=== PATIENT | female | born 1990 | race Caucasian/White ===

== ENCOUNTER 2016-10-29 14:41 | Observation (INO) | payer OTHER ==
[~2016-10-29] VITALS: Ht 154.9 cm; Wt 78.3 kg
[2016-10-29 15:09] VITALS: BP 133/86; RESP 22
--- NOTE | 2016-10-29 15:26 | ED.REPORT ---
HPI-Extremity Problem Upper Date of Service Oct 29, 2016 ED Provider: The patient is a 26 year old otherwise healthy female who presents to the emergency department complaining of left hand swelling and pain that has worsened over the last few days. The patient states she woke up in the middle of the night a few days ago and noticed her left little finger was itchy. Since this she has noticed swelling and redness to her left little finger, left hand and left arm. Her symptoms have drastically worsened in the last day. Her left little finger is now "white" in color and is draining purulent material. She has not had similar symptoms in the past. She denies fever. She has history of heroin abuse and last used 2-3 months ago. She smokes tobacco daily. Nursing Notes Stated Complaint: SPIDER BITE ON FINGER Chief Complaint: Extremity Trauma Nursing Notes Reviewed: Yes Allergies: Coded Allergies: Penicillins (Verified Allergy, Severe, hives, 02/04/14) General Time Seen by MD: 15:25 Chief Complaint Hand Injury left Hx Obtained From: Patient Arrived By: Walk-in Onset Occurred: 3 days ago Symptom Duration: Since onset Location: : Hand left Quality: Painful Severity: Current: Moderate Severity: Maximum: Severe Associated with: Reports: Swelling, Denies: Fever Additional Notes: +discoloration, purulent drainage Pertinent Negative: Pt denies other symptoms Recent Healthcare: No recent hospitalization Similar Sx Previous: No Past Medical History Past Medical History Denies Past Surgical History Tonsillectomy Family History Noncontributory Smoking History Current Every Day Smoker Social History Alcohol Use: Denies alcohol use Drug Use: In recovery (from heroin) Other Social History: Local resident Ambulatory Status Independent Review of Systems Review of Systems Note: +purulent drainage Constitutional: Denies: Fever Musculoskeletal: Reports: Extremity pain, Extremity swelling Skin: Reports Rash, Reports Swelling Complete sys rev & neg: except as marked. Physical Exam Initial Vital Signs Vital Signs (First) Date Time Temp Pulse Resp B/P Pulse Ox O2 Delivery O2 Flow Rate FiO2 10/29/16 15:09 37.4 22 133/86 Room Air Initial VS: Reviewed Head / Eyes: Atraumatic, Normocephalic, PERRL ENT: Mucous membranes moist, Conjunctiva normal, No scleral icterus Neck: Supple, Non-tender, Full range of motion Respiratory: Breath sounds normal, Clear to auscultation, No respiratory distress Cardiovascular: Regular rate & rhythm, Heart sounds normal, Intact distal pulses Abdomen / GI: Soft, Non-tender, No guarding, No rebound, No distention Lower Extremities: Vascular intact, Neuro intact, No swelling, No tenderness Skin: Warm, Dry, No cyanosis Neurologic: Alert, Oriented, Nonfocal Psychiatric: Mood/affect normal, Behavior normal, Normal thought content General/Constitutional: Awake, Alert HAND: Her left little finger is dusky and purple. There is purulent drainage from the lateral aspect of her left little finger. There is obvious swelling, erythema, and warmth to her left hand. The redness streaks up to the elbow. Interpretation & Diagnostics Lab Results Interpretation Result Diagram: 10/29/16 1555 10/29/16 1555 Test 10/29/16 15:55 White Blood Count 12.7th/mm3 (3.8-10.1) Red Blood Count 4.89mil/mm3 (3.90-5.20) Hemoglobin 14.4g/dL (12.0-15.6) Hematocrit 40.2% (35.0-46.0) Mean Corpuscular Volume 82.2fL (81-100) Mean Corpuscular Hemoglobin 29.4pg (27.0-35.0) Mean Corpuscular Hemoglobin Concent 35.8% (32.0-37.0) Red Cell Distribution Width 12.3% (12.3-15.4) Platelet Count 325bil/L (150-400) Neutrophils (%) (Auto) 72.7% (40-74) Lymphocytes (%) (Auto) 19.2% (14-46) Monocytes (%) (Auto) 7.4% (4-12) Eosinophils (%) (Auto) 0.3% (0-5) Basophils (%) (Auto) 0.2% (0-3) Erythrocyte Sedimentation Rate 42mm/hr (0-32) Sodium Level 130mEq/L (134-144) Potassium Level 4.6mEq/L (3.5-5.2) Chloride Level 90mEq/L (97-108) Carbon Dioxide Level 25mmol/L (18-29) Blood Urea Nitrogen 10mg/dL (6-20) Creatinine 0.36mg/dL (0.57-1.00) Estimat Glomerular Filtration Rate 310mL/min (>59) Glucose Level 99mg/dL (60-99) Lactic Acid Level 0.9mmol/L (0.4-2.0) Calcium Level 9.3mg/dL (8.5-10.1) Magnesium Level 1.9mg/dL (1.6-2.6) Total Bilirubin 1.6mg/dL (0.0-1.2) Aspartate Amino Transf (AST/SGOT) 23U/L (0-50) Alanine Aminotransferase (ALT/SGPT) 30U/L (0-32) Alkaline Phosphatase 94U/L (25-150) C-Reactive Protein 21.9mg/dL (0.0-0.5) Total Protein 8.8g/dL (6.4-8.4) Albumin 3.9g/dL (3.4-5.0) X-Ray Chest Interpretation Chest Xray Interpretation: IMPRESSION: Normal for age, no acute disease over the chest is found. Dictated by: Gurjit Monge M.D. on 10/29/2016 at 16:54 Interpretation / Wet Read by: Interpret - Radiologist X-Ray Interpretation Xray Interpretation: IMPRESSION: Gas within the soft tissues is not seen. Prominent soft tissue swelling is noted. This is involving the entire hand but also most prominent at the fifth digit, especially over the middle and proximal aspect of that digit. Dictated by: Gurjit Monge M.D. on 10/29/2016 at 16:54 X-Ray Ordered: Hand right Interpretation / Wet Read by: Interpret - ED physician Re-Eval/Medical Decision Med Decision/Clinical Course Hand infection will have to go to the operating room. Broad-spectrum antibiotics initiated. Patient will be admitted. Source of Hx: Old records Re-Evaluation/Progress : Time of Eval: 16:30 Re-Evaluation/Progress Note: The patient understands with plan for admission. Consultation #1: Referral / Consult Name: Fran Esposito MD Consulted With: Orthopedic Call Returned at: 16:14 Musical Engineer: Will see patient Note: He is in surgery but will evaluate the patient. Consultation #2: Referral / Consult Name: Zi Dominguez MD Call Returned at: 16:26 Note: Spoke with the hand surgeon. He recommends consulting with ortho. If they are unable to see the patient he would like us to call him back. Consultation #3: Referral / Consult Name: Fran Esposito MD Consulted With: Orthopedic Call Returned at: 17:00 Musical Engineer: Will see patient, Agrees with eval, Agrees with plan, Accepts admit Consultation #4: Referral / Consult Name: Chris Ma MD Consulted With: Video Clerk Call Returned at: 17:18 Musical Engineer: Will see patient, Agrees with eval, Agrees with plan, Accepts admit Counseled Regarding: Diagnosis, Lab results, Need for admission Discharge & Departure Impression: Primary Impression: Infected hand Disposition: ADMITTED TO HOSPITAL Discharge Condition All VS Reviewed: Yes Condition: Stable Referrals: NOPCP (PCP) Scribe Attestation Portions of this note were transcribed by Hawa Guerrero. I, Dr. Diaz personally performed the history, physical exam and medical decision-making; I reviewed and confirmed the accuracy of the information in the transcribed note. Signed by: Ramsey Caputo, 10/29/2016 and 1730. Dionisio Diaz DO Oct 29, 2016 15:26 Hawa Guerrero Oct 29, 2016 15:28
[2016-10-29] MEDS ORDERED: Ondansetron 2 mg/mL 2 mL Inj IVPUSH PRN ×2 (16:05→17:20)
[2016-10-29] MEDS ORDERED: Clindamycin Inj 900 MG in IV Premix 1 EACH IV ONE (16:05)
[2016-10-29] MEDS ORDERED: Vancomycin Dose per Pharmacist XX ONE (16:05)
[2016-10-29] MEDS ORDERED: 0.9% Sodium Chloride 1,000 ML IV ONE (16:05)
[2016-10-29] MEDS ORDERED: 0.9% Sodium Chloride 1,000 ML IV SCH ×4 (16:05→20:16)
[2016-10-29] MEDS ORDERED: Meropenem Inj 1,000 MG in 0.9% Sodium Chloride 100 ML IV ONE (16:05)
[2016-10-29] MEDS ORDERED: Meropenem Inj 1,000 MG in IV Premix 1 EACH IV ONE (16:20)
[2016-10-29 16:29] LABS: BASOPHILS % (AUTO) 0.2 % (0-3); EOSINOPHILS % (AUTO) 0.3 % (0-5); MONOCYTES % (AUTO) 7.4 % (4-12); Mean Corpuscular Hemoglobin 29.4 pg (27.0-35.0); Mean Corpuscular Volume 82.2 fL (81-100); NEUTROPHILS % (AUTO) 72.7 % (40-74); Platelet Count 325 bil/L (150-400)
[2016-10-29 16:34] LABS: Magnesium 1.9 mg/dL (1.6-2.6)
--- NOTE | 2016-10-29 16:56 | DRSVH ---
PROCEDURE: X-RAY CHEST ONE VIEW, PORTABLE ([id number]) INDICATIONS: infected 5th digit TECHNIQUE: One view of the chest was acquired. COMPARISON: None. FINDINGS: Surgical changes and devices: None. Lungs and pleura: No pleural effusions or pneumothorax. Lungs are clear. Mediastinum: Mediastinal contours appear normal. Heart size is normal. Bones and chest wall: No suspicious bony lesions. Overlying soft tissues appear unremarkable. IMPRESSION: Normal for age, no acute disease over the chest is found. Dictated by: Gurjit Monge M.D. on 10/29/2016 at 16:54 Approved by: Gurjit Monge M.D. on 10/29/2016 at 16:54
--- NOTE | 2016-10-29 16:56 | DRSVH ---
PROCEDURE: X-RAY LEFT HAND, MINIMUM THREE VIEWS ([id number]) INDICATIONS: infected 5th digit TECHNIQUE: 3 views of the hand(s) acquired. COMPARISON: None. FINDINGS: Bones: No fractures or dislocations. No osteomyelitis or foreign body seen. No gas within the soft tissues. Carpal bones are normally aligned. No suspicious bony lesions. Soft tissues: No suspicious soft tissue calcifications. There is prominent soft tissue swelling of the dorsum of the hand and also across the palmar region and most pronounced over the fifth digit. IMPRESSION: Gas within the soft tissues is not seen. Prominent soft tissue swelling is noted. This is involving the entire hand but also most prominent at the fifth digit, especially over the middle a nd proximal aspect of that digit. Dictated by: Gurjit Monge M.D. on 10/29/2016 at 16:54 Approved by: Gurjit Monge M.D. on 10/29/2016 at 16:54
[2016-10-29 17:12] LABS: ERYTHROCYTE SEDIMENTATION RATE 42 mm/hr (0-32)
[2016-10-29] MEDS ORDERED: Alum-Mag Hydrox-Simeth 30 mL Suspension PO PRN (17:20)
--- NOTE | 2016-10-29 17:49 | PCM.CONORT ---
Subjective Date of Surgery: Oct 29, 2016 Surgeon Admitting Provider: Attending Provider: Primary Care Physician:Renee Orthopedic surgeon: Fran Esposito M.D. 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 She denies IV heroin use for the last 2 months but smoked heroin this morning and has used amphetamines within the last week. The patient presents to [facility] emergency room reporting left small finger pain, swelling, blistering and drainage beginning approximately 2 days prior to admission. The patient denies injecting into her left hand, but does not recall any obvious trauma to the affected area. She believes she may have experienced a "spider bite", but did not actually see any suspicious arachnoids. The patient denies fevers or chills, but has not been feeling well. She has not had anything to eat or drink since early this a.m. The patient reports altered sensation in her small finger tip and is unable to actively flex or extend her markedly swollen digit. There has been secondary swelling of her hand, but no streaking or lymphadenopathy. The patient has been admitted to the hospitalist service with an elevated WBC of 12.7. X-rays are negative for fracture, dislocation, lytic lesions, periosteal reaction or foreign body. Soft tissue swelling is noted about the left small finger. Vital signs revealed no hemodynamic instability. The patient has been started on vancomycin, clindamycin and meropenem for presumed infection. An orthopedic consultation has been requested for surgical assessment regarding her swollen and macerated left small finger and hand. Allergy Allergies: Coded Allergies: Penicillins (Verified Allergy, Severe, hives, 02/04/14) History History of ENT Problems?: No Hx of Heart Problems?: No Cardiovascular History: Denies:: Congestive Heart Failure Hypertension Hx of Respiratory Problem?: No Respiratory History: Denies:: Tuberculosis Hx Neurologic Problems?: No Hx of GI Problems?: No Hx of Problems?: No Genitourinary History: Denies:: HX of Hemodialysis Kidney Stones HX of Peritoneal Dialysis: No Female Hx: Denies:: Currently Endometriosis Pelvic Inflammatory Problems with Breasts? Hx Musculoskeletal Problems?: No Hx of Psycho/Social Problems?: No Hx Surgeries?: No Hx Any Other Health Problems?: No Other History: Denies:: Cancer Endocrine Disease Hospitalization Thyroid Disease History Blood Transfusions: Denies:: Blood Transfusions Hx Diabetes: No Hx Alcohol Use: NoHx Substance Use: No Smoking Status: Current Every Day Smoker Have You Smoked inLast 12 mo: Yes Objective Exam Objective Imaging Patient Name: LESLY SIMPSON MR#: [id number] [place] [facility] [place]ing Phys: Dionisio Diaz DO Date of Service: 10/29/16 1605 PROCEDURE: X-RAY LEFT HAND, MINIMUM THREE VIEWS ([id number]) INDICATIONS: infected 5th digit TECHNIQUE: 3 views of the hand(s) acquired. COMPARISON: None. FINDINGS: Bones: No fractures or dislocations. No osteomyelitis or foreign body seen. No gas within the soft tissues. Carpal bones are normally aligned. No suspicious bony lesions. Soft tissues: No suspicious soft tissue calcifications. There is prominent soft tissue swelling of the dorsum of the hand and also across the palmar region and most pronounced over the fifth digit. IMPRESSION: Gas within the soft tissues is not seen. Prominent soft tissue swelling is noted. This is involving the entire hand but also most prominent at the fifth digit, especially over the middle and proximal aspect of that digit. Dictated by: Gurjit Monge M.D. on 10/29/2016 at 16:54 Approved by: Gurjit Monge M.D. on 10/29/2016 at 16:54 Vital Signs & I/O Vital Sign- Last 8 Hours Date Time Temp Pulse Resp B/P Pulse Ox O2 Delivery O2 Flow Rate FiO2 10/29/16 15:09 37.4 22 133/86 Room Air Lab & Micro Results Laboratory Tests Test 10/29/16 15:55 White Blood Count 12.7th/mm3 (3.8-10.1) Red Blood Count 4.89mil/mm3 (3.90-5.20) Hemoglobin 14.4g/dL (12.0-15.6) Hematocrit 40.2% (35.0-46.0) Mean Corpuscular Volume 82.2fL (81-100) Mean Corpuscular Hemoglobin 29.4pg (27.0-35.0) Mean Corpuscular Hemoglobin Concent 35.8% (32.0-37.0) Red Cell Distribution Width 12.3% (12.3-15.4) Platelet Count 325bil/L (150-400) Neutrophils (%) (Auto) 72.7% (40-74) Lymphocytes (%) (Auto) 19.2% (14-46) Monocytes (%) (Auto) 7.4% (4-12) Eosinophils (%) (Auto) 0.3% (0-5) Basophils (%) (Auto) 0.2% (0-3) Erythrocyte Sedimentation Rate 42mm/hr (0-32) Sodium Level 130mEq/L (134-144) Potassium Level 4.6mEq/L (3.5-5.2) Chloride Level 90mEq/L (97-108) Carbon Dioxide Level 25mmol/L (18-29) Blood Urea Nitrogen 10mg/dL (6-20) Creatinine 0.36mg/dL (0.57-1.00) Estimat Glomerular Filtration Rate 310mL/min (>59) Glucose Level 99mg/dL (60-99) Lactic Acid Level 0.9mmol/L (0.4-2.0) Calcium Level 9.3mg/dL (8.5-10.1) Magnesium Level 1.9mg/dL (1.6-2.6) Total Bilirubin 1.6mg/dL (0.0-1.2) Aspartate Amino Transf (AST/SGOT) 23U/L (0-50) Alanine Aminotransferase (ALT/SGPT) 30U/L (0-32) Alkaline Phosphatase 94U/L (25-150) C-Reactive Protein 21.9mg/dL (0.0-0.5) Total Protein 8.8g/dL (6.4-8.4) Albumin 3.9g/dL (3.4-5.0) Microbiology 10/29/16 Blood Culture, Received Pending Result Diagram: 10/29/16 1555 10/29/16 8902 Review of Systems: Constitutional: Negative, except as otherwise mentioned in the history above. Ophthalmologic: Negative, except as otherwise mentioned in the history above. Cardiovascular: Negative, except as otherwise mentioned in the history above. Respiratory: Negative, except as otherwise mentioned in the history above. Gastrointestinal: Negative, except as otherwise mentioned in the history above. Genitourinary: Negative, except as otherwise mentioned in the history above. Musculoskeletal: Negative, except as otherwise mentioned in the history above. Neurological: Negative, except as otherwise mentioned in the history above. Psychiatric: Negative, except as otherwise mentioned in the history above. Hematologic/Lymphatic: Negative, except as otherwise mentioned in the history above. Allergic/Immunologic: Negative, except as otherwise mentioned in the history above. H&P Surgical Exam Exam General: Alert, Oriented X3, Cooperative, Severe Distress Musculoskeletal: Left hand and upper extremity: Marked fusiform swelling of the small finger and distal ulnar hand centered over the proximal small finger phalanx laterally. There is blistering dorsally over the PIP joint and maceration of the ulnar lateral border of the small finger. The skin is dusky and ecchymotic from fingertip to base of digit dorsally and ulnar. The patient cannot demonstrate active flexion or extension of the digit which is maintained in slight flexion. There is moderate swelling of the ulnar hand and mild to moderate erythema and swelling of the ring and middle fingers. The majority of discomfort is elicited with palpation about the small finger. The digit feels tense. No obvious, single draining wound is noted. Serosanguineous drainage from the blistered and split skin is sent for Gram stain, culture and sensitivity. There is no obvious streaking of the forearm or axillary lymphadenopathy. Neurovascular exam: Median and radial sensation grossly intact to light touch. Ulnar sensation is diminished. Flexor pollicis longus, interossei, extensor pollicis longus 3/5 motor power. Capillary refill of the small fingertip is sluggish. Radial pulse is palpable. H&P Preop Plan Impression Left small finger infection with presumed abscess in patient with history of illicit substance use and previous hand infections. Problems: Risks & Benefits * We have reviewed the risks and benefits as well as the alternatives to surgery. All questions were answered to the patient's satisfaction and a counseling note to that effect. The patient has provided informed consent. * I have counseled the patient regarding the deleterious effects that smoking during the perioperative period can have upon wound healing, infection rates, and the overall rate of complications. Plan I have reviewed the serious nature of the problem with the patient and have recommended that we go to the OR as soon as possible for a left finger and hand incision and drainage procedure. We reviewed the potential risks and benefits of surgery including, but not limited to, discussions involving infection, bleeding, neurovascular injury, stiffness, weakness, hypersensitivity and reflex sympathetic dystrophy, incomplete eradication of infection requiring repeat procedures including amputation and recurrence. We also discussed general medical complications including, but not limited to, stroke, myocardial infarction, cardiorespiratory arrest, generalized infection or sepsis, deep vein thrombosis and pulmonary embolism and exacerbation of pre-existing medical comorbidities. Postoperatively, patient will require inpatient admission for continued IV antibiotic therapy and initiation of wound care from the wound care team. copies to: Fran Esposito MD, Michael G.E MD Oct 29, 2016 17:49
--- NOTE | 2016-10-29 18:04 | PCM.HPMED ---
Subjective Date of Service Oct 29, 2016 Primary Provider: Admitting Physician: Primary Care Physician: Renee Attending Physician: Chief Complaint: Left fifth digit pain and drainage HISTORY was OBTAINED FROM PATIENT / [address] NOTES History of present illness 26-year-old female, left AMA 2013 with right hand cellulitis admission associated with SIRS, presents today in the ER with right fifth digit drainage after 1 day sudden erythema/pain onset. She indicates possible spider bite, heroin and amphetamine use recently. Smoker. no sick contacts. no other household members w/ rash. no DM In the ER, hemodynamically stable. Dr. Fran Esposito from orthopedics will take her for I&D Review of Systems - none of the following - F/C/ wt change/ [place] / lightheaded / dizziness / sob / cough / cp / acid reflux / n/v/diarrhea / bleeding/bruising / leg swelling / change in voiding / yeast infections FAMILY HX diabetes CAD SOCIAL HX smoker, illicit drug use MEDICATIONS none Past Medical/Surgical HX Right hand cellulitis Dental infection Allergies Coded Allergies: Penicillins (Verified Allergy, Severe, hives, 02/04/14) PMH Social History Hx Alcohol Use: No Hx Substance Use: No Smoking Status: Current Every Day Smoker Exam Vital Signs Vital Sign - Last Date Time Temp Pulse Resp B/P Pulse Ox O2 Delivery O2 Flow Rate FiO2 10/29/16 15:09 37.4 22 133/86 Room Air Lab and Diagnostics Labs Exam on admission NAD A and O x 3 mood affect WNL NC/AT no icterus no injected eyes EOMI PERRL /no pharyngeal lesions/ no oral lesions / hearing intact Supple neck CTAB equal chest rise / no accessory muscle use / speaks in full sentences / no rrw RRR mildly tachy S1 S2 / no mrg / 2+ radial pulses BILATERAL Soft nt nd + BS no hepatosplenomegaly No edema no cyanosis no ecchymosis of lower extremities No rash / no jaundice BELLO Left hand wrapped bilateral hands mild edema LFT total bilirubin 1.6, direct 0.3 ESR/CRP are elevated CXR unremarkable Hand xray IMPRESSION: Gas within the soft tissues is not seen. Prominent soft tissue swelling is noted. This is involving the entire hand but also most prominent at the fifth digit, especially over the middle and proximal aspect of that digit. Result Diagram: 10/29/16 3246 10/29/16 5217 Assessment & Plan Active issues and reason for admission Right fifth finger abscess -- Pending I&D, pending blood cultures and wound culture -- Meropenem and vancomycin clindamycin in ER, continue vancomycin and meropenem , allergic to PCN -- Blood glucose is not elevated hypoNa, likely due to dehydration, c/o thirst --IVF Chronic issues known prior to admission, present on admission Heroin/amphetamine --Anticipate withdrawal (rhinorrhea/diarrhea/diffuse pain), clonidine Ativan Bentyl morphine benadryl Diet regular post op DVT prophylaxis Lovenox ambulate Code full Disposition inpatient status Assessment and plan were discussed with patient adn boyfriend. Chris Ma MD Oct 29, 2016 18:04
--- NOTE | 2016-10-29 19:16 | PCM.HPANE ---
Patient Data Surgeon Admitting Provider: Attending Provider: Primary Care Physician:Renee Other Provider: Reason for Visit Spider Bite On Finger Ht/WT & BMI Height (Feet): 5 Height (Inches): 1 Weight (Kilograms): 72.73 Body Mass Index Allergies Coded Allergies: Penicillins (Verified Allergy, Severe, hives, 02/04/14) Past Anesthesia History Anesthesia History: Denies:: Anesthesia Reactions Diabetes History Hx Diabetes?: No MRSA MRSA: No History History of ENT Problems?: No Hx of Heart Problems?: No Cardiovascular History: Denies:: Congestive Heart Failure Hypertension Hx of Respiratory Problem?: No Respiratory History: Denies:: Tuberculosis Hx Neurologic Problems?: No Hx of GI Problems?: No Hx of Problems?: No Genitourinary History: Denies:: HX of Hemodialysis Kidney Stones HX of Peritoneal Dialysis: No Female Hx: Denies:: Currently Endometriosis Pelvic Inflammatory Problems with Breasts? Hx Musculoskeletal Problems?: No Hx of Psycho/Social Problems?: No Hx Surgeries?: No Hx Any Other Health Problems?: No Other History: Denies:: Cancer Endocrine Disease Hospitalization Thyroid Disease History Blood Transfusions: Denies:: Blood Transfusions Hx Diabetes: No Hx Alcohol Use: NoHx Substance Use: No Smoking Status: Current Every Day Smoker Have You Smoked inLast 12 mo: Yes Stop/Bang DESHAWN Risk Assessment: Low Risk, <3 Yes Risk Assessment Category Category 1A: Patient has history of documented sleep apnea, and HAS NOT received any narcotic, sedative or anesthesia administration during this stay. Category 1B: Patient has history of documented sleep apnea, and HAS received any narcotic , sedative or anesthesia administration during this stay Category 2: Patient has SUSPECTED Obstructive Sleep Apnea, and HAS received any narcotic , sedative or anesthesia administration during this stay. Category 3: Patient has SUSPECTED Obstructive Sleep Apnea and HAS NOT received narcotic, sedative or anesthesia administration during this stay. Category 4: Outpatient in Procedural Areas with known sleep apnea or who screen positive for High Risk via the STOP/BANG questionnaire. Exam Exam Vital Signs Vital Signs Date Time Temp Pulse Resp B/P Pulse Ox O2 Delivery O2 Flow Rate FiO2 10/29/16 15:09 37.4 22 133/86 Room Air General Appearance: Alert, Oriented X3, Cooperative, No Acute Distress HEENT/AIRWAY: MP 2 Lungs: Clear to Auscultation, Normal Air Movement Heart: Exam Unremarkable, Regular Rate/Rhythm, No Murmurs/Rubs/Gallops Meds/Labs/Diagnostics Admission Meds Current Medications Pharmacy Consult 1 ea 1 ea ONCE ONCE XX Last administered on 10/29/16 17:50; Start 10/29/16 at 16:05; Stop 10/29/16 at 16:32; Status DC Sodium Chloride 1,000 ml @ 0 mls/hr Q0M IV Last administered on 10/29/16 17: 18; Start 10/29/16 at 16:05 Vancomycin HCl/ Dextrose/Water (Vancocin Inj/ D5W) 250 ml @ 166.667 mls/hr ONCE ONCE IV Last administered on 10/29/16 17:50; Start 10/29/16 at 16:35; Stop 10/29/16 at 18:04; Status DC Labs Test 10/29/16 15:55 White Blood Count 12.7th/mm3 (3.8-10.1) Red Blood Count 4.89mil/mm3 (3.90-5.20) Hemoglobin 14.4g/dL (12.0-15.6) Hematocrit 40.2% (35.0-46.0) Mean Corpuscular Volume 82.2fL (81-100) Mean Corpuscular Hemoglobin 29.4pg (27.0-35.0) Mean Corpuscular Hemoglobin Concent 35.8% (32.0-37.0) Red Cell Distribution Width 12.3% (12.3-15.4) Platelet Count 325bil/L (150-400) Neutrophils (%) (Auto) 72.7% (40-74) Lymphocytes (%) (Auto) 19.2% (14-46) Monocytes (%) (Auto) 7.4% (4-12) Eosinophils (%) (Auto) 0.3% (0-5) Basophils (%) (Auto) 0.2% (0-3) Erythrocyte Sedimentation Rate 42mm/hr (0-32) Sodium Level 130mEq/L (134-144) Potassium Level 4.6mEq/L (3.5-5.2) Chloride Level 90mEq/L (97-108) Carbon Dioxide Level 25mmol/L (18-29) Blood Urea Nitrogen 10mg/dL (6-20) Creatinine 0.36mg/dL (0.57-1.00) Estimat Glomerular Filtration Rate 310mL/min (>59) Glucose Level 99mg/dL (60-99) Lactic Acid Level 0.9mmol/L (0.4-2.0) Calcium Level 9.3mg/dL (8.5-10.1) Magnesium Level 1.9mg/dL (1.6-2.6) Total Bilirubin 1.6mg/dL (0.0-1.2) Direct Bilirubin 0.3mg/dL (0.0-0.3) Aspartate Amino Transf (AST/SGOT) 23U/L (0-50) Alanine Aminotransferase (ALT/SGPT) 30U/L (0-32) Alkaline Phosphatase 94U/L (25-150) C-Reactive Protein 21.9mg/dL (0.0-0.5) Total Protein 8.8g/dL (6.4-8.4) Albumin 3.9g/dL (3.4-5.0) Plan Impression Patient chart reviewed, patient interviewed and anesthestic plan with risks, benefits, and alternatives discussed, and informed consent obtained. ASA Physical Status: ASA2 Mod Systemic Disease Anesthetic Plan: GA Bene/Risks/Altern/Consents: Yes HP Complete Prior to Induction: Yes Other drug use recently, what is not certain nor is when Jabari Bronson MD Oct 29, 2016 19:16
[2016-10-29] MEDS ORDERED: Ondansetron 2 mg/mL 2 mL Inj ONE (19:20)
[2016-10-29] MEDS ORDERED: Dexamethasone 4 mg/mL Inj ONE (19:20)
[2016-10-29] MEDS ORDERED: Propofol 10,000 mCg/mL 20 mL Inj ONE (19:20)
[2016-10-29 19:35] VITALS: BP 116/66; PULSE 113; RESP 16; O2SAT 99
[2016-10-29] MEDS ORDERED: cloNIDine 0.1 mg Tablet PO PRN (20:20)
--- NOTE | 2016-10-29 21:51 | PCM.CONPHA ---
Subjective Date of Service: Oct 29, 2016 Left fifth digit pain and drainage HISTORY was OBTAINED FROM PATIENT / [employer] NOTES History of present illness 26-year-old female, left AMA 2013 with right hand cellulitis admission associated with SIRS, presents today in the ER with right fifth digit drainage after 1 day sudden erythema/pain onset. She indicates possible spider bite, heroin and amphetamine use recently. Smoker. no sick contacts. no other household members w/ rash. no DM In the ER, hemodynamically stable. Dr. Fran Esposito from orthopedics will take her for I&D Review of Systems - none of the following - F/C/ wt change/ [place] / lightheaded / dizziness / sob / cough / cp / acid reflux / n/v/diarrhea / bleeding/bruising / leg swelling / change in voiding / yeast infections FAMILY HX diabetes CAD SOCIAL HX smoker, illicit drug use MEDICATIONS none Past Medical/Surgical HX Right hand cellulitis Dental infection Reason for Pharmacy Consult: Vancomycin Dosing Objective Vital Signs Date Time Temp Pulse Resp B/P Pulse Ox O2 Delivery O2 Flow Rate FiO2 10/29/16 19:35 36.9 113 16 116/66 99 Room Air 10/29/16 15:09 37.4 22 133/86 Room Air Weight (Kilograms): 78.300 Height (Feet): 5 Height (Inches): 1.00 Test 10/29/16 15:55 White Blood Count 12.7th/mm3 (3.8-10.1) Red Blood Count 4.89mil/mm3 (3.90-5.20) Hemoglobin 14.4g/dL (12.0-15.6) Hematocrit 40.2% (35.0-46.0) Mean Corpuscular Volume 82.2fL (81-100) Mean Corpuscular Hemoglobin 29.4pg (27.0-35.0) Mean Corpuscular Hemoglobin Concent 35.8% (32.0-37.0) Red Cell Distribution Width 12.3% (12.3-15.4) Platelet Count 325bil/L (150-400) Neutrophils (%) (Auto) 72.7% (40-74) Lymphocytes (%) (Auto) 19.2% (14-46) Monocytes (%) (Auto) 7.4% (4-12) Eosinophils (%) (Auto) 0.3% (0-5) Basophils (%) (Auto) 0.2% (0-3) Erythrocyte Sedimentation Rate 42mm/hr (0-32) Sodium Level 130mEq/L (134-144) Potassium Level 4.6mEq/L (3.5-5.2) Chloride Level 90mEq/L (97-108) Carbon Dioxide Level 25mmol/L (18-29) Blood Urea Nitrogen 10mg/dL (6-20) Creatinine 0.36mg/dL (0.57-1.00) Estimat Glomerular Filtration Rate 310mL/min (>59) Glucose Level 99mg/dL (60-99) Lactic Acid Level 0.9mmol/L (0.4-2.0) Calcium Level 9.3mg/dL (8.5-10.1) Magnesium Level 1.9mg/dL (1.6-2.6) Total Bilirubin 1.6mg/dL (0.0-1.2) Direct Bilirubin 0.3mg/dL (0.0-0.3) Aspartate Amino Transf (AST/SGOT) 23U/L (0-50) Alanine Aminotransferase (ALT/SGPT) 30U/L (0-32) Alkaline Phosphatase 94U/L (25-150) C-Reactive Protein 21.9mg/dL (0.0-0.5) Total Protein 8.8g/dL (6.4-8.4) Albumin 3.9g/dL (3.4-5.0) Assessment/Plan Assessment/Plan POSSIBLE SPIDER BITE? HX OF illicit drug use lLD 1250MG, FOLLOW BY 1GM Q8H TROUGH to be drawn tomorrow before the 4th dose, @ 17[address] [facility] TROUGH LEVEL 15 - 20 Vernon Hanley PharmD Oct 29, 2016 21:51
[2016-10-30] VITALS (12 sets, daily range): BP systolic 102–148; BP diastolic 62–79; PULSE 64–103; RESP 15–20; O2SAT 94–100
[2016-10-30 00:09] LABS: APPEARANCE,URINE CLEAR (CLEAR,HAZY); COLOR,URINE DARK YELLOW (YELLOW); OCCULT BLOOD,URINE NEGATIVE (NEGATIVE)
[2016-10-30] MEDS ORDERED: Lactated Ringer's 500 ML IV PRN (00:17)
[2016-10-30] MEDS ORDERED: Lactated Ringer's 1,000 ML IV SCH (00:17)
[2016-10-30] MEDS ORDERED: Ondansetron 2 mg/mL 2 mL Inj IVPUSH PRN ×2 (00:20→01:10)
[2016-10-30] MEDS ORDERED: hydrALAZINE 20 mg/mL Inj IVPUSH PRN (00:20)
[2016-10-30] MEDS ORDERED: Dexamethasone 4 mg/mL Inj IVPUSH PRN (00:20)
[2016-10-30] MEDS ORDERED: fentaNYL-PF 50 mCg/mL 2 mL Inj IVPUSH PRN (00:20)
[2016-10-30] MEDS ORDERED: Phenylephrine 10,000 mCg/mL Inj IVPUSH PRN (00:20)
[2016-10-30] MEDS ORDERED: Atropine 0.4 mg/mL Inj IVPUSH PRN (00:20)
[2016-10-30] MEDS ORDERED: EPHEDrine Sulfate 50 mg/mL Inj IVPUSH PRN (00:20)
[2016-10-30] MEDS ORDERED: HYDROmorphone 1 mg/mL Inj IVPUSH PRN ×2 (00:20→01:10)
[2016-10-30] MEDS ORDERED: Labetalol 5 mg/mL 4 mL Inj IV PRN (00:20)
[2016-10-30] MEDS ORDERED: MetoCLOpramide 5 mg/mL 2 mL Inj IVPUSH PRN (00:20)
[2016-10-30] MEDS ORDERED: Meropenem Inj 1,000 MG in IV Premix 1 EACH IV SCH (00:30)
[2016-10-30] MEDS ORDERED: Bupivacaine-MPF 0.5% 30 mL Inj INFILTRATE ONE (00:39)
[2016-10-30] MEDS ORDERED: Magnesium Hydroxide 10 mL Oral Concentration PO PRN (01:10)
[2016-10-30] MEDS ORDERED: Polyethylene Glycol (PEG) 17 Gm Powder PO PRN (01:10)
[2016-10-30] MEDS ORDERED: diphenhydrAMINE 25 mg Capsule PO PRN (01:10)
[2016-10-30] MEDS ORDERED: Sodium Biphos-Phos 133 mL Enema RECTAL PRN (01:10)
--- NOTE | 2016-10-30 01:16 | PCM.ANEP1 ---
Post Anesthesia Phase 1 PACU Phase 1 Assessment Date of Service: Oct 29, 2016 Vital Signs Vital Signs Date Time Temp Pulse Resp B/P Pulse Ox O2 Delivery O2 Flow Rate FiO2 10/30/16 01:10 95 18 135/74 99 Simple Mask 10 10/30/16 01:07 37.5 95 15 125/74 99 Simple Mask 10 10/30/16 00:13 37.3 103 16 117/69 99 Room Air 10/29/16 19:35 36.9 113 16 116/66 99 Room Air Anesthetic Administered: GA Level of Alertness: Awake, talking BELLO's with Equal Strength: Yes Pain: No Pain Scale Score: 8 Nausea or Vomiting: No Oxygen Delivery: Simple Mask Lungs: Clear to Auscultation, Normal Air Movement Jabari Bronson MD Oct 30, 2016 01:16
--- NOTE | 2016-10-30 01:20 | PCM.ANEP2 ---
Post Anesthesia Evaluation ASA/CMS Post Anesthesia VS in Patient's Normal Range?: Yes Resp Stable; Airway Patent?: Yes CV Function & Hydration Stable: Yes Mental Status Recovered?: Yes Pain control Satisfactory?: Yes N/V Control Satisfactory?: Yes Jabari Bronson MD Oct 30, 2016 01:20
--- NOTE | 2016-10-30 01:34 | PCM.ORTHOB ---
Immediate Operative Note Date of Service: Oct 30, 2016 Pre Operative Diagnosis Left small finger abscess Post Operative Diagnosis Same Procedure Left small finger abscess incision and drainage Surgeon Surgeon: Fran Esposito MD Assistants: None Findings The small finger had a scalded appearance with blistered skin along the ulnar border, volar and dorsal surfaces of the small finger. Dermal tissue appeared yellowish volar and ulnar to the base of the small finger extending into the distal hand. 2 mm ovoid wound noted along the mid ulnar border of the distal and proximal to the small finger MCP flexor crease. Creamy, arguello, malodorous and purulent material aspirated from this wound extending deep to a subcutaneous abscess which was sent to microbiology for Gram stain, culture and sensitivities. Left small finger subcutaneous abscess 6 cm x 6 cm extending from the small finger PIP joint level proximally to the mid ulnar border of the hand, radially to the first webspace volar and dorsal to the mid fifth ray. The subcutaneous abscess contained devitalized subcutaneous tissues. The flexor and extensor tendon sheaths appeared intact. There was no apparent violation of the PIP joint or MCP joint of the small finger. Devitalized material removed from the described abscess cavity through a 2 cm longitudinal wound extended proximally from the possible original wound site. Overlying de- epithelialized tissue appeared to have reddened and yellowish tissue which still appeared viable. Small finger appeared dusky distally with slow, but present capillary refill at the end of case. Grafts, Implants: None Complications There were no periprocedural complications identified. Condition Stable Anesthetic Administered: GA Drains: Pen Starla (1/4" iodoform gauze packing) Catheters: None Output, Estimated Blood Loss: 10 Blood Admin during surgery: No Additional Information Tourniquet time 37 minutes. Surgical Specimen Removed: Yes Surgical Specimen sent to Path: No Surgical Specimen description: Abscess material sent to microbiology for Gram stain, culture and sensitivity Post Operative Plan The patient will be admitted for continuation of IV antibiotic therapy ( vancomycin and clindamycin) pending intraoperative culture results. The surgical wound has been left open to allow for healing by secondary intent. Wound care consultation has been requested for initiation of wound care beginning postop day #1. The patient's wound will be closely observed for evidence of clinical improvement and daily CBC for monitoring WBC response to therapy. Possible second look procedure may be warranted if clinical course does not show improvement. Long, protracted postoperative course is to be expected and secondary procedures for soft tissue coverage and/or additional debridements may be required. Fran Esposito MD Oct 30, 2016 01:34
--- NOTE | 2016-10-30 01:45 | NUR ---
Transfer Pt transferred from PACU byLori BRO via stretcher.
--- NOTE | 2016-10-30 01:48 | PCM.ORTHOP ---
Orthopedic Operative Report Date of Service: Oct 30, 2016 Pre Operative Diagnosis Left small finger abscess Post Operative Diagnosis Same Procedure Left small finger abscess incision and drainage Surgeon Surgeon: Fran Esposito MD Assistants: None Indication for Procedure The patient is a 26-year-old right-hand dominant woman with a history of IV drug use reports a 2 day history of progressive left small finger pain, swelling and drainage from small finger blisters. Possible history of spider bite by patient. Patient admitted to [facility] with WBC of 12.7 and obvious left small finger swelling, erythema and skin blistering consistent with underlying digital abscess. Patient presents for urgent I&D of her left small finger. Findings The small finger had a scalded appearance with blistered skin along the ulnar border, volar and dorsal surfaces of the small finger. Dermal tissue appeared yellowish volar and ulnar to the base of the small finger extending into the distal hand. 2 mm ovoid wound noted along the mid ulnar border of the distal and proximal to the small finger MCP flexor crease. Creamy, arguello, malodorous and purulent material aspirated from this wound extending deep to a subcutaneous abscess which was sent to microbiology for Gram stain, culture and sensitivities. Left small finger subcutaneous abscess 6 cm x 6 cm extending from the small finger PIP joint level proximally to the mid ulnar border of the hand, radially to the first webspace volar and dorsal to the mid fifth ray. The subcutaneous abscess contained devitalized subcutaneous tissues. The flexor and extensor tendon sheaths appeared intact. There was no apparent violation of the PIP joint or MCP joint of the small finger. Devitalized material removed from the described abscess cavity through a 2 cm longitudinal wound extended proximally from the possible original wound site. Overlying de- epithelialized tissue appeared to have reddened and yellowish tissue which still appeared viable. Small finger appeared dusky distally with slow, but present capillary refill at the end of case. Details of Procedure Patient was brought to the OR and given a general anesthetic. Patient's left upper extremity was abducted and placed on the hand table. Tourniquet was placed high about the left arm. Left hand and upper extremity received a trauma scrub and then were prepped and draped in usual sterile fashion. Devitalized, blistered, scalded-appearing epidermis was debrided from the base of the small finger and distal ulnar border of the hand. A 20-gauge needle was then used through a 2 mm puncture type of in the ulnar border of the distal hand just proximal to the small finger MCP flexor crease where creamy, arguello, malodorous material was aspirated. The aspirated material was sent to microbiology for Gram stain, culture and sensitivity. We made a 2 cm longitudinal incision distal to the puncture wound along the ulnar border of the distal hand. We entered a subcutaneous cavity (6 x 6 cm) extending from the mid hand into the distal palm and proximal to the small finger volar, ulnar and dorsally which extended distally into the small finger to the level of the PIP joint volarly, ulnar and dorsally. The flexor and extensor tendons transversing the affected region appeared intact. The PIP joint did not appear violated. We debrided the abscess cavity of purulent and devitalized tissue. The wound was then thoroughly irrigated with normal saline and the wound packed open with quarter-inch iodoform gauze. The wound was dressed with Xeroform fluff gauze dressings. The tourniquet was deflated. The left small fingertip remained dusky but slow capillary refill was noted to return. The patient was taken back to PACU in stable and satisfactory condition. There were no complications. The patient tolerated the procedure well. Grafts, Implants: None Complications There were no periprocedural complications identified. Condition Stable Anesthetic Administered: GA Drains: Pen Starla (1/4" iodoform gauze packing) Catheters: None Output, Estimated Blood Loss: 10 Blood Admin during surgery: No Addtional Information Tourniquet time 37 minutes. Surgical Specimen Removed: Yes Specimen sent to Pathology: No Surgical Specimen description: Abscess material sent to microbiology for Gram stain, culture and sensitivity Post Operative Plan The patient will be admitted for continuation of IV antibiotic therapy ( vancomycin and clindamycin) pending intraoperative culture results. The surgical wound has been left open to allow for healing by secondary intent. Wound care consultation has been requested for initiation of wound care beginning postop day #1. The patient's wound will be closely observed for evidence of clinical improvement and daily CBC for monitoring WBC response to therapy. Possible second look procedure may be warranted if clinical course does not show improvement. Long, protracted postoperative course is to be expected and secondary procedures for soft tissue coverage and/or additional debridements may be required. copies to: Fran Esposito MD, Michael G.E MD Oct 30, 2016:48
--- NOTE | 2016-10-30 01:52 | NUR ---
Admit to Room 1003 Patient arrived from ED at 1940 via gurney accompanied by ED RN and significant other. VSS. Patient appeared teary and anxious about upcoming surgery on finger and about being "judged" by hospital personnel . Patient was reassured . Pain medication and lorazepam administered by charge nurse. IV fluids started. Behavioral contract signed by patient as she was caught in the bathroom smoking. Patient was informed of hospital policy.
[2016-10-30] MEDS: Lactated Ringer's 1,000 ML IV SCH ×2 (02:05→11:06)
[2016-10-30] MEDS: Vancomycin Inj 1,000 MG in IV Premix 1 EACH IV SCH ×2 (02:06→10:11)
[2016-10-30 07:28] LABS: Mean Corpuscular Hemoglobin 28.9 pg (27.0-35.0); Mean Corpuscular Volume 82.3 fL (81-100)
[2016-10-30] MEDS: Clindamycin Inj 600 MG in IV Premix 1 EACH IV SCH ×2 (08:30→16:30)
[2016-10-30] MEDS ORDERED: Senna-Docusate 8.6-50 mg Tablet PO SCH (08:30)
[2016-10-30] MEDS ORDERED: Vancomycin Dose per Pharmacist XX ONE (08:30)
[2016-10-30] MEDS: Sodium Chloride LOK Flush 10 mL Syringe IV SCH ×2 (08:42→16:30)
--- NOTE | 2016-10-30 08:58 | NUR ---
Social Work: Screening Data: Pt is a 26 y/o female admitted for hand infections. Pt's PCP is not listed, pt is self pay insurance. [employer] left a [facility] application with pt. No further d/c planning needs anticipated at this time. BEAD PICKER will continue to follow if needs arise. Assessment: Pt who is independent at baseline. Plan: Pt will d/c home via POV when medically stable. No further d/c planning needs anticipated at this time. [employer] will continue to follow if needs arise. RAMA Jernigan
--- NOTE | 2016-10-30 14:09 | PCM.PNMED ---
Subjective Date of Service Oct 30, 2016 Subjective reports ongoing hand pain. denies any other new issues/complaints Exam Vital Signs Vital Sign - Last Date Time Temp Pulse Resp B/P Pulse Ox O2 Delivery O2 Flow Rate FiO2 10/30/16 13:02 36.9 88 16 102/62 100 Room Air 10/30/16 01:35 3 Intake and Output 10/29/16 10/29/16 10/30/16 Cumulative From/Thru 15:00 23:00 07:00 10/29/16 15:09 - 10/30/16 06:42 Intake Total 1415 ml 1415 ml Output Total 2210 ml 2210 ml Balance -795 ml -795 ml Intake Oral 440 ml 440 ml IV Total 975 ml 975 ml Output Urine Total 2200 ml 2200 ml Estimated Blood Loss 10 ml 10 ml # Bowel Movements 0 0 General: Alert, Cooperative, No Acute Distress Eyes: Scleral Anicteric Mouth: Mucous Membr Moist/[place]: Supple Chest & Lungs: Chest Wall Normal, Clear to auscultation & percussion Cardiovascular: Regular Rate/Rhythm Abdomen: Non-tender, Non-distended, Normoactive bowel tones, Soft Extremities: No cyanosis/clubbing/edma bilat, Other (left hand in dressing) Neurological: Grossly Neurologically Intact, Normal Speech IVs and Medications Medications Reviewed: Medications were reviewed in detail Lab and Diagnostics Result Diagram: 10/30/1662910/30/16629 Assessment & Plan 26-year-old right-handed female with a past medical history significant for IV drug use and previous right hand infections who reportedly denies IV heroin use for the last 2 months but smoked heroin recently and has used amphetamines within the last week presents with report of left small finger pain, swelling, blistering and drainage beginning approximately 2 days prior to admission. # Acute left small finger abscess present on admission. post incision and drainage on 10/30/16 - appreciate ortho consult. will f/u w/ recs - c/w current Vancomycin and Meropenem (allergic to PCN). f/u pending cultures # Acute hyponatremia. poa. likely due to dehydration - resolved with IVF. - f/u # Possible acute urinary tract infection. poa - c/w Abx as noted above - f/u pending culture # History of Heroin and Amphetamine abuse - Anticipate withdrawal. Currently stable. - Clonidine, Ativan, Bentyl, Morphine, Benadryl Dispo: 2-3 days VTE Mechanical Devices: Intermittant Pneumatic CD Time spent 25 min Nahid Watson Oct 30, 2016 14:09
--- NOTE | 2016-10-30 15:21 | PCM.PNORTH ---
Subjective Date of Service: Oct 30, 2016 Visit Information: Reason for Visit Hand Infection Surgery/Surgery Date Post-Op Day # Date of Admission: Oct 29, 2016 at 19:19 Hospital Day # Subjective Status post day #1 left small finger incision and drainage. Patient doing fairly well, states her pain is well controlled. Biggest thing bothering her today is how bright the lights are. She states she can feel light touch to the finger though it is slightly numb on the pinky finger. Postop General: No Shortness of Breath, No Chest Pain Objective Exam Objective Patient is lying down comfortably in the bed in no acute distress today. Answering questions appropriately. Patient very irritable by the lights being turned on in the room. Wrap and dressing in good position, clean and dry. Patient able to slightly wiggle all of her fingers including the pinky, sensation is decreased to the pinky but she can feel light touch. Capillary refill along the nailbed is less than 2 seconds. Patient has severe discoloration of DIP of the finger it is a deep purple, very dark in color and looks void of blood flow by capillary refill is good. Confirmed with Dr. Fran Esposito that the coloration of the finger is unchanged from before the surgery. Photographs of this were taken. Vital Signs and I/O Vital Sign - Last Date Time Temp Pulse Resp B/P Pulse Ox O2 Delivery O2 Flow Rate FiO2 10/30/16 13:02 36.9 88 16 102/62 100 Room Air 10/30/16 01:35 3 Intake and Output 10/29/16 10/29/16 10/30/16 Cumulative From/Thru 15:00 23:00 07:00 10/29/16 15:09 - 10/30/16 06:42 Intake Total 1415 ml 1415 ml Output Total 2210 ml 2210 ml Balance -795 ml -795 ml Intake Oral 440 ml 440 ml IV Total 975 ml 975 ml Output Urine Total 2200 ml 2200 ml Estimated Blood Loss 10 ml 10 ml # Bowel Movements 0 0 Lab & Micro Results Laboratory Tests Test 10/29/16 15:55 10/29/16 22:00 10/30/16 06:30 White Blood Count 12.7th/mm3 (3.8-10.1) 13.0th/mm3 (3.8-10.1) Red Blood Count 4.89mil/mm3 (3.90-5.20) 4.36mil/mm3 (3.90-5.20) Hemoglobin 14.4g/dL (12.0-15.6) 12.6g/dL (12.0-15.6) Hematocrit 40.2% (35.0-46.0) 35.9% (35.0-46.0) Mean Corpuscular Volume 82.2fL (81-100) 82.3fL (81-100) Mean Corpuscular Hemoglobin 29.4pg (27.0-35.0) 28.9pg (27.0-35.0) Mean Corpuscular Hemoglobin Concent 35.8% (32.0-37.0) 35.1% (32.0-37.0) Red Cell Distribution Width 12.3% (12.3-15.4) 12.0% (12.3-15.4) Platelet Count 325bil/L (150-400) 335bil/L (150-400) Neutrophils (%) (Auto) 72.7% (40-74) Lymphocytes (%) (Auto) 19.2% (14-46) Monocytes (%) (Auto) 7.4% (4-12) Eosinophils (%) (Auto) 0.3% (0-5) Basophils (%) (Auto) 0.2% (0-3) Erythrocyte Sedimentation Rate 42mm/hr (0-32) Sodium Level 130mEq/L (134-144) 138mEq/L (134-144) Potassium Level 4.6mEq/L (3.5-5.2) 4.4mEq/L (3.5-5.2) Chloride Level 90mEq/L (97-108) 101mEq/L (97-108) Carbon Dioxide Level 25mmol/L (18-29) 24mmol/L (18-29) Blood Urea Nitrogen 10mg/dL (6-20) 6mg/dL (6-20) Creatinine 0.36mg/dL (0.57-1.00) 0.51mg/dL (0.57-1.00) Estimat Glomerular Filtration Rate 310mL/min (>59) 207mL/min (>59) Glucose Level 99mg/dL (60-99) 142mg/dL (60-99) Lactic Acid Level 0.9mmol/L (0.4-2.0) Calcium Level 9.3mg/dL (8.5-10.1) 8.7mg/dL (8.5-10.1) Magnesium Level 1.9mg/dL (1.6-2.6) Total Bilirubin 1.6mg/dL (0.0-1.2) 1.1mg/dL (0.0-1.2) Direct Bilirubin 0.3mg/dL (0.0-0.3) Aspartate Amino Transf (AST/SGOT) 23U/L (0-50) 16U/L (0-50) Alanine Aminotransferase (ALT/SGPT) 30U/L (0-32) 22U/L (0-32) Alkaline Phosphatase 94U/L (25-150) 81U/L (25-150) C-Reactive Protein 21.9mg/dL (0.0-0.5) Total Protein 8.8g/dL (6.4-8.4) 7.4g/dL (6.4-8.4) Albumin 3.9g/dL (3.4-5.0) 3.3g/dL (3.4-5.0) Urine Color Dark yellow (YELLOW) Urine Appearance Clear (CLEAR,HAZY) Urine pH 6.0 (5.0-8.0) Urine Specific [place] 1.025 (1.003-1.035) Urine Protein Tracemg/dL (NEG,TRACE) Urine Glucose (UA) Negativemg/dL (NEGATIVE) Urine Ketones 15mg/dL (NEGATIVE) Urine Occult Blood Negative (NEGATIVE) Urine Nitrite Negative (NEGATIVE) Urine Bilirubin Negative (NEGATIVE) Urine Urobilinogen 4.0mg/dL (NORMAL) Urine Leukocyte Esterase Trace (NEGATIVE) Urine RBC 0-2/hpf (0-2) Urine WBC 6-10/hpf (0-5) Urine Epithelial Cells Many/hpf (NONE-MOD) Urine Crystals None seen (NONE SEEN) Urine Bacteria Few/hpf (NONE-FEW) Urine Hyaline Casts None/lpf (NONE) Urine Granular Casts None seen (NONE SEEN) Urine Waxy Casts None seen (NONE SEEN) Urine Red Blood Cell Casts None seen (NONE SEEN) Urine White Blood Cell Casts None seen (NONE SEEN) Urine Mucus Present (None Seen) Urine Trichomonas None seen (NONE SEEN) Urine Yeast None (NONE SEEN) Urinalysis Comment None Urine Opiates Screen Positive Urine Methadone Screen Negative Urine Barbiturates Screen Negative Urine Amphetamines Screen Positive Urine Benzodiazepines Screen Negative Urine Cocaine Metabolite Screen Negative Urine Cannabinoids Screen Negative Microbiology 10/29/16 Blood Culture, Received Pending 10/30/16 Gram Stain - Final, Resulted 10/30/16 Culture & Sensitivity, Resulted Pending 10/30/16 Anaerobic Culture, Resulted Pending Result Diagram: 10/30/16 0630 10/30/16 0630 Catheters: None Assessment & Plan Impression Status post day #1 left pinky finger I&D. Patient is stable. Culture still pending. Problems: Plan The patient will be admitted for continuation of IV antibiotic therapy ( vancomycin and clindamycin) pending intraoperative culture results. The surgical wound has been left open to allow for healing by secondary intent. Wound care consultation has been requested for initiation of wound care beginning postop day #1. The patient's wound will be closely observed for evidence of clinical improvement and daily CBC for monitoring WBC response to therapy. Possible second look procedure may be warranted if clinical course does not show improvement. Patient will remain in the hospital for 1-2 more days for culture results and to decide appropriate antibiotic therapy. Miguelangel Samuels PA-C Oct 30, 2016 15:21
--- NOTE | 2016-10-30 17:02 | NUR ---
Social Work Note - Chemical Dependency Screen Lauren Tamayo is a 26 yr old who was admitted for hand infection due to IV drug use. Pt states that she shoots heroin 2-3 times a day, also smokes meth daily. Pt states she has been using for the past 5 years. She has not been in treatment in the past. She has tried buying Suboxone off of the street. Pt has no insurance - states that she has not been able to afford treatment on her own. She has not applied for Medicaid in the past - has not worked in several years. History of Withdrawals: Pt admits that staying sober is hard - she is in a lot of pain, feels anxious, becomes angry and feels that she cant survive without drugs. She admits that she has left the hospital AMA due to withdrawal. She wants to stay clean, wants to complete IV antibiotics, does not want to leave AMA this admission. Family History: Pt states that her brother has been addicted to drugs in the past - he spent time in [facility] and went to inpt treatment. He is currently sober and he wants her to get clean as well. Supports: Pt states she is estranged from her family - her brother and her parents have told her that they can not be with her when she is using. She states that she misses them and she believes that they will gladly be there for her if she decides to get clean. She is currently living with her boyfriend. She states he also is encouraging her to go to treatment. He does not use heroin - occasionally will use meth. Pt's perception of use: Pt states that she wants to get help. She is "tired of feeling this way". She believes that she can stay sober - her brother did it. Suicide Risk: Pt denies any suicidal ideations. Recommendations: EDUCATION COUNSELOR verified in EMR that [facility] has been contacted for help with Medicaid application. When [facility] identifies if pt is eligible for insurance, pt was encouraged to call [facility] to ask for assessment and treatment. Pt will be eligible for treatment either way - just needs to apply for medicaid. EDUCATION COUNSELOR provided list of Substance Abuse treatment centers, [facility] as well as 24 hour crisis line. Encouraged pt to not leave AMA, and EDUCATION COUNSELOR will continue to follow. RODRIGO Chavarria
[2016-10-30] MEDS ORDERED: Vancomycin Serum Trough XX ONE (17:30)
--- NOTE | 2016-10-30 17:57 | NUR ---
AMA Patient is leaving [facility], all the risks have been explained to patient, the loss of limb, the possibility of . Pt wanted to leave and nothing was going to change her mind. Pt left with her boyfriend at 1758 AMA, papers were signed and IV was taken out
--- NOTE | 2016-11-01 07:32 | PCM.DC.MED ---
Discharge Summary Date of Service Nov 01, 2016 Dates of Hospitalization Date of Hospital Admission Oct 29, 2016 at 19:19 Date of Discharge: Oct 30, 2016 Providers: Admitting Physician: Fran Esposito MD Primary Care Physician: Nopcp Attending Physician: Fran Esposito MD Diagnosis at Time of Discharge Diagnosis at Time of Discharge LEFT AMA # Acute left small finger abscess present on admission. post incision and drainage on 10/30/16 # Acute hyponatremia. poa. likely due to dehydration - resolved with IVF. # Possible acute urinary tract infection. poa # History of Heroin and Amphetamine abuse Consultations 1. Ortho Brief History 26-year-old right-handed female with a past medical history significant for IV drug use and previous right hand infections who reportedly denies IV heroin use for the last 2 months but smoked heroin recently and has used amphetamines within the last week presents with report of left small finger pain, swelling, blistering and drainage beginning approximately 2 days prior to admission. Hospital Course # Acute left small finger abscess present on admission. post incision and drainage on 10/30/16 - appreciate ortho consult. will f/u w/ recs - on Vancomycin and Meropenem (allergic to PCN). f/u pending cultures # Acute hyponatremia. poa. likely due to dehydration - resolved with IVF. # Possible acute urinary tract infection. poa - c/w Abx as noted above - f/u pending culture # History of Heroin and Amphetamine abuse - Clonidine, Ativan, Bentyl, Morphine, Benadryl per nursing report patient decided to leave [facility] on 10/30/16. She did not wait for me to talk to her about her decision. Exam Vital Signs (Last) Date Time Temp Pulse Resp B/P Pulse Ox O2 Delivery O2 Flow Rate FiO2 10/30/16 13:02 36.9 88 16 102/62 100 Room Air 10/30/16 01:35 3 Test 10/29/16 15:55 10/29/16 22:00 10/30/16 06:30 Neutrophils (%) (Auto) 72.7% (40-74) Lymphocytes (%) (Auto) 19.2% (14-46) Monocytes (%) (Auto) 7.4% (4-12) Eosinophils (%) (Auto) 0.3% (0-5) Basophils (%) (Auto) 0.2% (0-3) Erythrocyte Sedimentation Rate 42mm/hr (0-32) Lactic Acid Level 0.9mmol/L (0.4-2.0) Magnesium Level 1.9mg/dL (1.6-2.6) Direct Bilirubin 0.3mg/dL (0.0-0.3) C-Reactive Protein 21.9mg/dL (0.0-0.5) Urine Color Dark yellow (YELLOW) Urine Appearance Clear (CLEAR,HAZY) Urine pH 6.0 (5.0-8.0) Urine Specific [place] 1.025 (1.003-1.035) Urine Protein Tracemg/dL (NEG,TRACE) Urine Glucose (UA) Negativemg/dL (NEGATIVE) Urine Ketones 15mg/dL (NEGATIVE) Urine Occult Blood Negative (NEGATIVE) Urine Nitrite Negative (NEGATIVE) Urine Bilirubin Negative (NEGATIVE) Urine Urobilinogen 4.0mg/dL (NORMAL) Urine Leukocyte Esterase Trace (NEGATIVE) Urine RBC 0-2/hpf (0-2) Urine WBC 6-10/hpf (0-5) Urine Epithelial Cells Many/hpf (NONE-MOD) Urine Crystals None seen (NONE SEEN) Urine Bacteria Few/hpf (NONE-FEW) Urine Hyaline Casts None/lpf (NONE) Urine Granular Casts None seen (NONE SEEN) Urine Waxy Casts None seen (NONE SEEN) Urine Red Blood Cell Casts None seen (NONE SEEN) Urine White Blood Cell Casts None seen (NONE SEEN) Urine Mucus Present (None Seen) Urine Trichomonas None seen (NONE SEEN) Urine Yeast None (NONE SEEN) Urinalysis Comment None Urine Opiates Screen Positive Urine Methadone Screen Negative Urine Barbiturates Screen Negative Urine Amphetamines Screen Positive Urine Benzodiazepines Screen Negative Urine Cocaine Metabolite Screen Negative Urine Cannabinoids Screen Negative White Blood Count 13.0th/mm3 (3.8-10.1) Red Blood Count 4.36mil/mm3 (3.90-5.20) Hemoglobin 12.6g/dL (12.0-15.6) Hematocrit 35.9% (35.0-46.0) Mean Corpuscular Volume 82.3fL (81-100) Mean Corpuscular Hemoglobin 28.9pg (27.0-35.0) Mean Corpuscular Hemoglobin Concent 35.1% (32.0-37.0) Red Cell Distribution Width 12.0% (12.3-15.4) Platelet Count 335bil/L (150-400) Sodium Level 138mEq/L (134-144) Potassium Level 4.4mEq/L (3.5-5.2) Chloride Level 101mEq/L (97-108) Carbon Dioxide Level 24mmol/L (18-29) Blood Urea Nitrogen 6mg/dL (6-20) Creatinine 0.51mg/dL (0.57-1.00) Estimat Glomerular Filtration Rate 207mL/min (>59) Glucose Level 142mg/dL (60-99) Calcium Level 8.7mg/dL (8.5-10.1) Total Bilirubin 1.1mg/dL (0.0-1.2) Aspartate Amino Transf (AST/SGOT) 16U/L (0-50) Alanine Aminotransferase (ALT/SGPT) 22U/L (0-32) Alkaline Phosphatase 81U/L (25-150) Total Protein 7.4g/dL (6.4-8.4) Albumin 3.3g/dL (3.4-5.0) Followup Plan Disposition: Nahid Maguire Nov 01, 2016 07:32
== END 2016-10-30 17:58 | disposition left against medical advice (07) ==
LOC: SED 14:41 → INTOOBSV 19:19 → OSC 19:19 → MOC 10-30 01:18
PROVIDERS: ADMIT Orthopaedic Surgery; ATTEND Urology
DX: L02.512 Cutaneous abscess of left hand (principal); E87.1 Hypo-osmolality and hyponatremia; F17.210 Nicotine dependence, cigarettes, uncomplicated; F11.10 Opioid abuse, uncomplicated; F15.10 Other stimulant abuse, uncomplicated
CPT/HCPCS: 26011; 36415; 71010; 73130; 80053; 81001; 82274; 83605; 83735; 85025; 85027; 85651; 86140; 87040; 87070; 87075; 87185; 87186; 87205; 96361; 96365; 96366; 96367; 96372; 96375; 99285; G0480; J1100; J1650; J2060; J2270; J2405; J3370; J7030; J7120

== ENCOUNTER 2016-11-04 20:38 | Emergency (ER) | payer SELFPAY ==
[~2016-11-04] VITALS: Ht 157.5 cm; Wt 72.7 kg
[2016-11-04 20:53] VITALS: BP 122/77; PULSE 122; RESP 16; O2SAT 96
== END 2016-11-04 21:40 | disposition left against medical advice (07) ==
LOC: SED 20:38
DX: Z53.21 Procedure and treatment not carried out due to patient leaving prior to being seen by health care provider (principal)

== ENCOUNTER 2016-11-12 20:24 | Observation (INO) | payer OTHER ==
[~2016-11-12] VITALS: Ht 156.2 cm; Wt 75.0 kg
[2016-11-12 20:27] VITALS: BP 120/79; PULSE 102; RESP 16; O2SAT 100
--- NOTE | 2016-11-12 21:34 | ED.REPORT ---
HPI-General Illness Date of Service Nov 12, 2016 ED Provider: Colin Marshall MD This is a 26 year old female with a history of IV drug abuse presenting to the emergency department for wound check to L 5th finger. Pt admitted to the hospital from 10/29-11/01 for L 5th digit I&D and IV antibiotics, pt left AMA after I&D. Pt has not changed the dressing since then. Reports sensation in the finger but denies pain, fever, or chills. Last used IV heroin yesterday. Nursing Notes Stated Complaint: NEEDS BANDAGE CHANGE LEFT HAND Chief Complaint: Wound Recheck/Suture Removal Nursing Notes Reviewed: Yes Allergies: Coded Allergies: Penicillins (Verified Allergy, Severe, hives, 02/04/14) Kiwi (Verified Allergy, Unknown, 11/13/16) No Active Prescriptions or Reported Meds General Time Seen by MD: 21:30 Chief Complaint Other Hx Obtained From: Patient Arrived By: Walk-in Sudden in Onset?: Yes Onset Occurred: More than a week ago... (2 weeks) Symptom Duration: Since onset Severity: Current: No pain currently Pertinent Negative: Pt denies other symptoms Recent Healthcare: Recent hospitalization Past Medical History Past Medical History Denies Past Surgical History Tonsillectomy Family History Noncontributory Smoking History Current Every Day Smoker Social History Alcohol Use: Denies alcohol use Drug Use: In recovery Other Social History: Local resident Ambulatory Status Independent Review of Systems Full Review of Systems Constitutional: Denies: Chills, Fever Respiratory: Denies: Non-productive cough, Shortness of breath Musculoskeletal: Reports: Extremity pain, Denies: Extremity swelling Neurologic: Denies: Headache Complete sys rev & neg: except as marked. Physical Exam Vital Signs Vital Signs Date Time Temp Pulse Resp B/P Pulse Ox O2 Delivery O2 Flow Rate FiO2 11/12/16 22:55 36.7 72 140/85 97 Room Air 11/12/16 20:27 36.3 102 16 120/79 100 Room Air Initial VS: Reviewed, Vital signs abnormal General/Constitutional: Well-developed, Well-nourished Head / Eyes: Atraumatic, Normocephalic, PERRL ENT: Mucous membranes moist, Conjunctiva normal, No scleral icterus Neck: Supple, Non-tender, Full range of motion Respiratory: Breath sounds normal, Clear to auscultation, No respiratory distress Cardiovascular: Regular rate & rhythm, Heart sounds normal, Intact distal pulses Skin: Warm, Dry, No cyanosis Neurologic: Alert, Oriented, Nonfocal Psychiatric: Mood/affect normal, Behavior normal, Normal thought content Wrist / Hand: Full range of motion Left small finger: Open surgical wound to the left small finger with purulent drainage, foul odor, and packing still in place. Interpretation & Diagnostics Lab Results Interpretation Result Diagram: 11/12/16 2312 11/12/16 2312 Test 11/12/16 23:12 White Blood Count 9.2th/mm3 (3.8-10.1) Red Blood Count 4.80mil/mm3 (3.90-5.20) Hemoglobin 13.8g/dL (12.0-15.6) Hematocrit 40.0% (35.0-46.0) Mean Corpuscular Volume 83.3fL (81-100) Mean Corpuscular Hemoglobin 28.8pg (27.0-35.0) Mean Corpuscular Hemoglobin Concent 34.5% (32.0-37.0) Red Cell Distribution Width 13.1% (12.3-15.4) Platelet Count 443bil/L (150-400) Neutrophils (%) (Auto) 45.3% (40-74) Lymphocytes (%) (Auto) 45.3% (14-46) Monocytes (%) (Auto) 7.2% (4-12) Eosinophils (%) (Auto) 1.7% (0-5) Basophils (%) (Auto) 0.2% (0-3) Sodium Level 139mEq/L (134-144) Potassium Level 4.5mEq/L (3.5-5.2) Chloride Level 100mEq/L (97-108) Carbon Dioxide Level 28mmol/L (18-29) Blood Urea Nitrogen 12mg/dL (6-20) Creatinine 0.41mg/dL (0.57-1.00) Estimat Glomerular Filtration Rate 267mL/min (>59) Glucose Level 92mg/dL (60-99) Lactic Acid Level 1.8mmol/L (0.4-2.0) Calcium Level 9.3mg/dL (8.5-10.1) Magnesium Level 2.1mg/dL (1.6-2.6) Total Bilirubin 1.0mg/dL (0.0-1.2) Aspartate Amino Transf (AST/SGOT) 24U/L (0-50) Alanine Aminotransferase (ALT/SGPT) 24U/L (0-32) Alkaline Phosphatase 67U/L (25-150) Total Protein 7.8g/dL (6.4-8.4) Albumin 3.8g/dL (3.4-5.0) Lab values outside NL range: no clinical significance. Procedures Wound management at 00:30 by ED Physician: Packing was removed, there was considerable breakdown of further tissue with bone exposed in some areas with sloughing of the skin. Re-Eval/Medical Decision Med Decision/Clinical Course 26-year-old female noncompliant following debridement of a complex left small finger abscess. The purulent and foul-smelling dressing and packing were removed. We had considerable difficulty with IV access but were finally able to get blood testing and vancomycin started. Her case was discussed with Dr. Pack and with Dr. Esposito. She will be admitted to the hospital for further evaluation and treatment. Time of Eval: 00:30 Re-Evaluation/Progress Note: Wound management Consultation : Referral / Consult Name: Fran Esposito MD Consulted With: Orthopedic Call Returned at: 00:31 Product Examiner: Will see patient, Agrees with eval, Agrees with plan Counseled Regarding: Diagnosis, Lab results, Need for follow-up Discharge & Departure Primary Impression: Infected hand Additional Impression: Opioid dependence Substance use status: uncomplicated Qualified Code: F11.20 - Opioid dependence, uncomplicated Disposition: ADMITTED TO HOSPITAL Discharge Condition All VS Reviewed: Yes Condition: Stable Referrals: NOPCP (PCP) Scribe Attestation Portions of this note were transcribed by Cristiane Galloway. I, Dr. Marshall personally performed the history, physical exam and medical decision-making; I reviewed and confirmed the accuracy of the information in the transcribed note. Signed by: annmarie Pizarro. 11/12/2016, 02:00. Colin Marshall MD Nov 12, 2016 21:34 CRISTIANE GALLOWAY Nov 12, 2016 21:42
[2016-11-12] MEDS ORDERED: 0.9% Sodium Chloride 1,000 ML IV ONE (21:41)
[2016-11-12 22:55] VITALS: BP 140/85; PULSE 72; O2SAT 97
[2016-11-12 23:14] LABS: BASOPHILS % (AUTO) 0.2 % (0-3); EOSINOPHILS % (AUTO) 1.7 % (0-5); MONOCYTES % (AUTO) 7.2 % (4-12); Mean Corpuscular Hemoglobin 28.8 pg (27.0-35.0); Mean Corpuscular Volume 83.3 fL (81-100); NEUTROPHILS % (AUTO) 45.3 % (40-74); Platelet Count 443 bil/L (150-400)
[2016-11-12 23:53] LABS: Magnesium 2.1 mg/dL (1.6-2.6)
[2016-11-13] VITALS (15 sets, daily range): BP systolic 101–122; BP diastolic 63–85; PULSE 61–93; RESP 12–19; O2SAT 94–100
--- NOTE | 2016-11-13 01:37 | PCM.EDPN ---
ED Note Date of Service Nov 13, 2016 Under ultrasound guidance, using sterile technique, a 20-gauge, 1.75 inch IV catheter was placed in the patient's left distal axilla. Patient tolerated the procedure well. IV flushed easily. Magaly Harvey MD Nov 13, 2016 01:37
[2016-11-13] MEDS ORDERED: Polyethylene Glycol (PEG) 17 Gm Powder PO PRN (02:00)
[2016-11-13] MEDS ORDERED: Ondansetron 2 mg/mL 2 mL Inj IVPUSH PRN ×2 (02:00→16:35)
[2016-11-13] MEDS ORDERED: Alum-Mag Hydrox-Simeth 30 mL Suspension PO PRN (02:00)
[2016-11-13] MEDS: Lactated Ringer's 1,000 ML IV SCH ×4 (02:33→21:08)
--- NOTE | 2016-11-13 02:53 | PCM.HPMED ---
Subjective Date of Service Nov 13, 2016 Primary Provider: Admitting Physician: Juan Pack MD Primary Care Physician: Renee Attending Physician: Juan Pack MD Chief Complaint: Left hand wound History of Present Illness: Patient is a 26 year old female with a history of heroin and tobacco use. She presented to [facility] on 11/12/16 for a wound check and dressing change on her left hand. She has had a wound on her left 5th ("pinky") finger for about two weeks. She came to [facility] on 10/29/16 to have it evaluated and an I&D was performed by Dr. Esposito of orthopedics. Patient received IV antibiotics during that admission. Unfortunately she left AMA on 10/30/16 and did not get a full course. She does report that she felt the hand was improving until about two or three days ago. She reports having seen a dark red material ooze from in between her ring and pinky fingers but denies pus. She felt the finger was swollen and somewhat red. Packing remained in place and was removed in the ED tonight by Dr. Marshall. She denies fever, chills, chest pain, shortness of breath, nausea, vomiting, diarrhea, other skin wounds, cough, sore throat, and nasal congestion. Culture data from previous admit showed MSSA. Anaerobic cultures also came back positive for Prevotella sp. In the ED the patient was afebrile with heart 102, respiratory rate 16, blood pressure 120/79, and O2 saturation of 100% on room air. Labs were unremarkable. Dr. Esposito of orthopedics was alerted that the patient had returned and plans to consult tomorrow AM. Case discussed with Dr. Marshall and patient will be admitted for management of her left hand wound. Dr. Marshall to order hand x-ray prior to patient leaving ED, as well as order Suboxone. Review of Systems: A comprehensive review of systems was conducted with the patient and found to be negative except as above in the history of present illness. Allergies Coded Allergies: Penicillins (Verified Allergy, Severe, hives, 02/04/14) Kiwi (Verified Allergy, Unknown, 11/13/16) Home Medications None reported PMH None reported Surgical History Tonsillectomy at age 14 I&D of left 5th finger 10/30/16 Family History Maternal grandmother with colon cancer, stroke Parents healthy Social History Hx Alcohol Use: No Hx Substance Use: Yes (Has both smoked and injected heroin; occasional smoking marijuana) Hx Tobacco Use: Yes Smoking Status: Current Every Day Smoker (1/2 PPD) Exam Vital Signs Vital Sign - Last Date Time Temp Pulse Resp B/P Pulse Ox O2 Delivery O2 Flow Rate FiO2 11/13/16 01:51 37.0 88 18 101/74 99 Room Air Exam Alert and oriented x3, no acute distress; hands and feet appear quite dirty Head atraumatic, normocephalic PERRLA, EOMI, sclera anicteric Mucus membranes moist, no oral thrush observed; poor dentition noted, most apparent in the upper teeth No cervical lymphadenopathy, neck supple, nontender No JVD noted Cardiac tones regular rate and rhythm with no murmur appreciated Lungs clear to auscultation bilaterally with adequate respiratory effort No abdominal tenderness, non-distended, normoactive bowel tones, soft Solo absent Radial pulses normal and equivalent bilaterally, dorsalis pedis pulses normal and equivalent bilaterally No cyanosis, clubbing or edema Left hand newly wrapped at time of this exam - foul odor noted when dressing adjusted for attempts to glimpse the pinky finger Cranial nerves appear to be fully intact, normal speech, patient can move upper and lower limbs grossly Lab and Diagnostics Result Diagram: 11/12/16 2312 11/12/162 Additional Diagnostics: Wound management at 00:30 by ED Physician: Packing was removed, there was considerable breakdown of further tissue with bone exposed in some areas with sloughing of the skin. Assessment & Plan Patient is a 26 year old female with a history of heroin and tobacco use. She presented to [facility] on 11/12/16 for a wound check and dressing change on her left hand. When the dressing was removed it was discovered that the wound had worsened with the ED physician noting skin sloughing, foul odor, and possible exposed bone. Dr. Esposito of orthopedics consulted. Patient admitted for management of this left hand wound with likely surgery in the near future. 1. Left fifth digit infection, acute present on admission. - Dr. Esposito of orthopedics consulted and we appreciate his input. - Patient NPO for likely surgery tomorrow AM. - IV LR 100 ml/hr. - Vancomycin started in the ED. Will continue vancomycin and add flagyl for anaerobic coverage. - Patient with MSSA and Prevotella cultured from I&D on . Prevotella may be resistant but no sensitivity data available. - Will consult Dr. Major of infectious disease for better antibiotic management in the face of unusual culture data from prior admission. - Anticipate additional cultures to be done during surgery tomorrow. - Blood cultures ordered and pending. MRSA nasal screen ordered and pending. 2. Heroin use, chronic. - Last use reported to be yesterday - IV. - Has used IV and inhaled. - Voices desire to go through detox at facility in [place]. - Dr. Marshall considering the use of suboxone in this patient. - Monitor for signs of withdrawal including anxiety, agitation, nausea, vomiting , restlessness. - One dose of diazepam 5 mg currently available for management of anxiety/ agitation related to withdrawal. Will defer to day team for continued use of this medication. - Clonidine 0.1 mg PO available PRN. - Antiemetic available PRN. 3. Tobacco use, chronic. - 1/2 PPD currently. - Nicotine patch available PRN. 4. Social work consultation. - Please visit with the patient and discuss her options for outpatient heroin detox. She is interested in pursuing detox after her hand infection has resolved. - Tylenol available PRN mild pain, fever. - Antacid available PRN. - Bowel regimen available PRN. Patient admitted under inpatient status with expected length of stay greater than 2 midnights for severity of present symptoms, complexities of treatment plan and risk for adverse events. No PCP GI Prophylaxis: Not indicated VTE Prophylaxis Indicated: Contraindicated (Likely having surgery tomorrow AM) VTE Prophylaxis: SCDs Resuscitation Status: CPR: Attempt Resuscitation Attending Statement The patient was seen and examined together with Dr. Shepherd on 11/13 and I agree with the history, exam and plan as outlined in the note above. Hui Shepherd DO Nov 13, 2016 02:34 Juan Pack MD Nov 13, 2016 04:00
--- NOTE | 2016-11-13 02:57 | NUR ---
Admit Patient arrived to [facility] room 1011 around 0200. Able to ambulate from ER stretcher to [facility] bed. A&Ox3, answering questions appropriately. Left upper arms IV is patent and infusing Vancomycin & IV fluids upon arrival without issue. Dressing to left pinky changed and replaced in ER- clean, dry, and intact. Rating pain a 2/10, which she states is tolerable. Skin check performed to upper extremities, torso, and back. Patient wearing pants and doesn't want to take them off at the moment. Agreeable to finishing skin check when up to BR, aware of need for U/A. Will pass on both to day shift if not completed by then. Currently NPO in preparation for surgery tomorrow. Sharps container removed from room. Belongings locked up in closet. MRSA swab obtained and sent to lab for hx of MRSA and previous IV drug use. Placed on contact precautions. Oriented to room and call light.
--- NOTE | 2016-11-13 03:35 | PCM.PHAPRO ---
Progress Left hand wound VANCOMYCIN DOSING PER PHARMACY Indication: Left finger infxn Trough goal: 10-15 Labs: Scr 0.41 CrCl 200 WBC: 9.2 Current blood cultures are pending - Had MSSA and Prevotella cultured from previous admission Note: Pt had come in two weeks ago and was receiving vancomycin but left before full course was finished Plan: - Pt got loading dose of vancomycin 1500 mg IV in the ED 11/12 @ 2230 - Will give vancomycin 1000 mg IV q8h beginning on 11/13 @0630 - Will draw trough on 11/13 @2200 before the 4th dose Geovanna Rust PharmD Nov 13, 2016 03:35
[2016-11-13] MEDS ORDERED: Vancomycin Inj 1,000 MG in IV Premix 1 EACH IV SCH (06:30)
--- NOTE | 2016-11-13 08:00 | PCM.CONORT ---
Subjective Date of Surgery: Nov 13, 2016 Surgeon Admitting Provider:Juan Pack MD Attending Provider:Juan Pack MD Primary Care Physician:Renee Orthopedic surgeon: Fran Esposito M.D. 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 The patient's left small finger wound, which extended proximal to the level of the MCP-5 joint was left open with packing with postoperative plans for dressing changes and possible second look procedures to allow the finger wound to heal by secondary intent. Intraoperative cultures revealed staph aureus and prevotella species as causative organisms. Unfortunately the patient left [facility] shortly after her surgery 10/30/2016 without receiving any further IV or oral antibiotic therapy. She reports attempting to change her dressing once or twice over the last 2 weeks and presented to the [facility] emergency room on one occasion for "dressing changes". The patient reports that the surgical wound has remained open and extended. The small finger bone is exposed and malodorous, purulent drainage seems from the wound. There has been extension of skin slough and maceration proximally into the ulnar border of the hand. The digit remains insensate with darkened fingertip. The patient reports increasing hand pain, but denies fevers or chills. The patient again presented to [facility] emergency room 11/13/2016 for medical assistance regarding her left small finger and hand wound. The patient was found to have a white blood cell count of 9.2 and vital signs otherwise stable. The patient has been admitted to the hospitalist service and orthopedic surgical service has again been consulted for evaluation and treatment. Allergy Allergies: Coded Allergies: Penicillins (Verified Allergy, Severe, hives, 02/04/14) Kiwi (Verified Allergy, Unknown, 11/13/16) History History of ENT Problems?: No HEENT History: Denies:: Cataracts Dysphagia Sinus Problem Hx of Heart Problems?: No Cardiovascular History: Denies:: Cardiac Surgery Chest Pain Congestive Heart Failure Edema Heart Murmur Hypertension Irregular Heartbeat Pacemaker Thrombophlebitis Hx of Respiratory Problem?: No Respiratory History: Positive for:: Pneumonia (when 14 years old) Denies:: Asthma COPD Chest Surgery Dyspnea Emphysema Hemoptysis Tuberculosis Hx Neurologic Problems?: No Neurological History: Denies:: Alzheimer's Disease CVA Dementia Dizziness Headaches Parkinson's Disease Seizures Hx of GI Problems?: No Gastrointestinal History: Denies:: Diverticulitis Gastroesphageal Reflux Gastrointestinal Bleeding Heartburn Hepatitis Hiatal Hernia Rectal Bleeding Hx of Problems?: No Genitourinary History: Denies:: HX of Hemodialysis Kidney Stones Urinary Tract Infection HX of Peritoneal Dialysis: No Female Hx: Denies:: Currently Endometriosis Pelvic Inflammatory Problems with Breasts? Hx Musculoskeletal Problems?: No Musculoskeletal History: Positive for:: Back Injury (low back pain) Denies:: Joint Replacement Musculoskeletal Trauma Hx of Psycho/Social Problems?: No Psycho Social History: Positive for:: Hx Depression Denies:: Anxiety Bipolar Disorder Suicide Attempt Hx Surgeries?: Yes (tonsillectomy) Hx Any Other Health Problems?: No Other History: Positive for:: Hospitalization (a couple weeks ago for finger infection & one year ago for other hand) Denies:: Cancer Endocrine Disease Thyroid Disease History Blood Transfusions: Positive for:: Accept Blood Products? Denies:: Blood Transfusions Hx Diabetes: No Hx Alcohol Use: NoHx Substance Use: Yes (Has both smoked and injected heroin; occasional smoking marijuana) Smoking Status: Current Every Day Smoker (1/2 PPD) Have You Smoked inLast 12 mo: YesApprox How Many Cigarettes/day: 10-20 a day Objective Exam Objective Imaging Patient Name: LESLY SIMPSON MR#: [id number] Location: [facility] [place] Ordering Phys: Dionisio Diaz DO Date of Service: 10/29/16 1605 PROCEDURE: X-RAY LEFT HAND, MINIMUM THREE VIEWS ([id number]) INDICATIONS: infected 5th digit TECHNIQUE: 3 views of the hand(s) acquired. COMPARISON: None. FINDINGS: Bones: No fractures or dislocations. No osteomyelitis or foreign body seen. No gas within the soft tissues. Carpal bones are normally aligned. No suspicious bony lesions. Soft tissues: No suspicious soft tissue calcifications. There is prominent soft tissue swelling of the dorsum of the hand and also across the palmar region and most pronounced over the fifth digit. IMPRESSION: Gas within the soft tissues is not seen. Prominent soft tissue swelling is noted. This is involving the entire hand but also most prominent at the fifth digit, especially over the middle and proximal aspect of that digit. Dictated by: Gurjit Monge M.D. on 10/29/2016 at 16:54 Approved by: Gurjit Monge M.D. on 10/29/2016 at 16:54 Vital Signs & I/O Vital Sign- Last 8 Hours Date Time Temp Pulse Resp B/P Pulse Ox O2 Delivery O2 Flow Rate FiO2 11/13/16 02:54 92 11/13/16 02:40 36.6 87 18 107/69 100 Room Air 11/13/16 01:51 37.0 88 18 101/74 99 Room Air 11/13/16 01:44 37.0 88 18 101/74 99 Room Air Intake and Output- Last 8 Hour 11/13/16 Cumulative From/Thru 07:00 11/12/16 20:27 - 11/13/16 06:52 Intake Total 1052 ml 1052 ml Output Total 650 ml 650 ml Balance 402 ml 402 ml Intake Oral 0 ml 0 ml IV Total 1052 ml 1052 ml Output Urine Total 650 ml 650 ml # Voids 1 1 # Bowel Movements 0 0 Lab & Micro Results Laboratory Tests Test 11/12/16 23:12 11/13/16 06:14 White Blood Count 9.2th/mm3 (3.8-10.1) Red Blood Count 4.80mil/mm3 (3.90-5.20) Hemoglobin 13.8g/dL (12.0-15.6) Hematocrit 40.0% (35.0-46.0) Mean Corpuscular Volume 83.3fL (81-100) Mean Corpuscular Hemoglobin 28.8pg (27.0-35.0) Mean Corpuscular Hemoglobin Concent 34.5% (32.0-37.0) Red Cell Distribution Width 13.1% (12.3-15.4) Platelet Count 443bil/L (150-400) Neutrophils (%) (Auto) 45.3% (40-74) Lymphocytes (%) (Auto) 45.3% (14-46) Monocytes (%) (Auto) 7.2% (4-12) Eosinophils (%) (Auto) 1.7% (0-5) Basophils (%) (Auto) 0.2% (0-3) Sodium Level 139mEq/L (134-144) Potassium Level 4.5mEq/L (3.5-5.2) Chloride Level 100mEq/L (97-108) Carbon Dioxide Level 28mmol/L (18-29) Blood Urea Nitrogen 12mg/dL (6-20) Creatinine 0.41mg/dL (0.57-1.00) Estimat Glomerular Filtration Rate 267mL/min (>59) Glucose Level 92mg/dL (60-99) Lactic Acid Level 1.8mmol/L (0.4-2.0) Calcium Level 9.3mg/dL (8.5-10.1) Magnesium Level 2.1mg/dL (1.6-2.6) Total Bilirubin 1.0mg/dL (0.0-1.2) Aspartate Amino Transf (AST/SGOT) 24U/L (0-50) Alanine Aminotransferase (ALT/SGPT) 24U/L (0-32) Alkaline Phosphatase 67U/L (25-150) Total Protein 7.8g/dL (6.4-8.4) Albumin 3.8g/dL (3.4-5.0) Hold Urine Received (Received) Microbiology 11/12/16 Blood Culture, Received Pending 11/13/16 MRSA Screen, Received Pending Result Diagram: 11/12/16231111/12/162311 Review of Systems: Constitutional: Negative, except as otherwise mentioned in the history above. Ophthalmologic: Negative, except as otherwise mentioned in the history above. Cardiovascular: Negative, except as otherwise mentioned in the history above. Respiratory: Negative, except as otherwise mentioned in the history above. Gastrointestinal: Negative, except as otherwise mentioned in the history above. Genitourinary: Negative, except as otherwise mentioned in the history above. Musculoskeletal: Negative, except as otherwise mentioned in the history above. Neurological: Negative, except as otherwise mentioned in the history above. Psychiatric: Negative, except as otherwise mentioned in the history above. Hematologic/Lymphatic: Negative, except as otherwise mentioned in the history above. Allergic/Immunologic: Negative, except as otherwise mentioned in the history above. H&P Surgical Exam Exam General: Alert, Oriented X3, Cooperative, Mild Distress Musculoskeletal: Left hand: The left small finger is moderately swollen with an associated gaping wound extending along the dorsal ulnar border from the PIP joint to the MCP joint. Malodorous, purulent drainage seeps from the wound and the proximal phalanx is evident within the base of the wound. The fingertip is darkened and the majority of skin on the digit is sloughed and macerated. Erythema and moderate swelling extending proximal to the MCP-5 level along the ulnar border of the mid hand. There is mild swelling and erythema radial to the fifth ray dorsal and volar and no more radial fluctuance. The patient did not demonstrate any small finger movement and is minimally tender to palpation. The remaining hand exam is remarkable only for dry skin. There is no forearm streaking or axillary lymphadenopathy. Neurovascular exam: Median, ulnar, radial sensation intact to light touch with the exception of the small finger which is insensate. Flexor pollicis longus, interossei, extensor pollicis longus 4/5 motor power. No motor function of the small finger is elicited. No capillary refill of the small fingertip. Radial pulse is palpable. H&P Preop Plan Impression Gangrenous left small finger and ulnar hand abscess in noncompliant IVDA patient following initial infection and I&D procedure 10/30/2016. Problems: Risks & Benefits * We have reviewed the risks and benefits as well as the alternatives to surgery. All questions were answered to the patient's satisfaction and a counseling note to that effect. The patient has provided informed consent. * I have counseled the patient regarding the deleterious effects that smoking during the perioperative period can have upon wound healing, infection rates, and the overall rate of complications. Plan I have reviewed the diagnosis and grave findings with this unfortunate patient and have recommended that we proceed to the OR today for left small finger amputation and partial fifth ray amputation. The goal of surgery will be to try to eradicate the present infection and removed devitalized tissue. This may only be the first of many procedures which may include more extensive in higher levels of amputation. Postoperative IV antibiotic therapy and wound care will be required. The patient understands that she will need to be strictly compliant with treatment recommendations if she is to optimize her chance at successful eradication of her hand infection which could easily become life threatening if not effectively managed. We reviewed the potential risks and benefits of surgery including, but not limited to, discussions involving infection, bleeding, neurovascular injury, stiffness, weakness, hypersensitivity and reflex sympathetic dystrophy, incomplete relief of infection and recurrence, wound healing problems and need for revision salvage and reconstructive procedures. We also discussed general medical complications including, but not limited to, stroke, myocardial infarction, cardiorespiratory arrest, generalized infection or sepsis, deep vein thrombosis and pulmonary embolism and exacerbation of pre-existing medical comorbidities. copies to: Fran Esposito MD, Michael G.E MD Nov 13, 2016 08:00
[2016-11-13] MEDS ORDERED: metroNIDAZOLE Inj 500 MG in IV Premix 1 EACH IV SCH (08:30)
[2016-11-13] MEDS ORDERED: Vancomycin Dose per Pharmacist XX SCH ×2 (08:30)
[2016-11-13] MEDS ORDERED: fentaNYL-PF 50 mCg/mL 2 mL Inj ONE (10:09)
[2016-11-13] MEDS ORDERED: HYDROmorphone 2 mg/mL Inj ONE (10:09)
[2016-11-13] MEDS ORDERED: Ketamine 10 mg/mL 20 mL Inj ONE (10:09)
[2016-11-13] MEDS ORDERED: Ondansetron 2 mg/mL 2 mL Inj ONE (11:03)
[2016-11-13] MEDS ORDERED: MetoCLOpramide 5 mg/mL 2 mL Inj ONE (11:03)
[2016-11-13] MEDS ORDERED: Propofol 10,000 mCg/mL 20 mL Inj ONE (11:03)
[2016-11-13] MEDS ORDERED: Dexamethasone 4 mg/mL Inj ONE (11:03)
[2016-11-13] MEDS ORDERED: Rocuronium 10 mg/mL 5 mL Inj ONE (11:03)
[2016-11-13] MEDS: cloNIDine 0.1 mg Tablet PO PRN (11:34)
--- NOTE | 2016-11-13 11:55 | CONS ---
[address] [address] CONSULTATION REPORT PATIENT: LESLY SIMPSON : 1990 MR#: [id number] ADMIT: 11/13/2016 JOB ID: [id number] DATE OF SERVICE: 11/13/2016 INFECTIOUS DISEASE CONSULTATION: I thank Dr. Shepherd for this timely consult. REASON FOR CONSULTATION: Severe infection left 5th finger and hand with osteomyelitis and abscess. HISTORY OF PRESENT ILLNESS: The patient is an unfortunate 26-year-old woman with longstanding IV heroin and amphetamine use. She was originally seen in this facility back in 2013 with a right hand infection. She underwent an incision and drainage of an abscess which grew MSSA. She then immediately signed out AMA and was lost to followup. She tells me that the right hand infection completely resolved. More recently, in early October, the patient developed swelling and tenderness with erythema around the base of the left 5th finger. This progressively worsened and so she eventually came to this hospital and was admitted for about a two-day period starting around October 29. At that time she was found to have an abscess involving the left 5th finger and Dr. Esposito performed quite an extensive debridement and culture of her abscess cavities present at that time. The wound was packed open with a plan to return to the operating room and continue a prolonged course of antibiotics, but unfortunately the patient once again, signed out AMA after just a day at a day or two. The cultures had yielded MSSA and Prevotella. The patient reports she returned to her home after she left [facility] and simply kept the bulky dressing that was on the hand in place basically for the next couple of weeks. She took no antibiotics and sought no evaluation. She finally decided to return to the emergency department on November 12, about two weeks after leaving [facility], for a "wound check." At that time it was discovered (last night in the ER basically) that there was a considerable extension of the infection with destruction of part of the left 5th finger and she was readmitted to this facility for additional evaluation. Interestingly the patient says that during the two weeks that she was out of the hospital with the open wound there was some pain but it was not terrible and she did not have any adenopathy or swelling around her elbow or her axilla, nor did she have any fevers, chills, or sweats. She actually says she felt fairly well despite having this recently debrided abscess in and around her 5th finger with an open wound. She had no GI or pulmonary symptoms, either. The patient was evaluated this morning by Dr. Esposito, who had done her prior surgery. He noted that there was exposed bone now and a malodorous purulent discharge from the wound with considerable maceration and damage to the finger, with an insensate digit and a darkened fingertip. His plan is to amputate the 5th finger on the left hand as well as do some debridement in the palm, and he anticipates there may be multiple required surgeries. ID consultation is requested regarding appropriate antibiotic management. PAST MEDICAL HISTORY: 1. History of ongoing IV heroin and meth use. 2. Tonsillectomy at age 14. 3. Status post right hand infection in 2013 which resolved after I and D and now with a severe left lateral and left ulnar hand infection. ALLERGIES: The patient reports she had serious hives due to PENICILLIN ALLERGY as a small child but that she has tolerated antibiotics and she specifically remembers taking courses of Keflex without any difficulty. SOCIAL HISTORY: The patient is a nondrinker who smokes cigarettes. She also occasionally smokes heroin but mainly injects heroin and meth. FAMILY HISTORY: Negative for tuberculosis. REVIEW OF SYSTEMS: Was done. The patient states she has no headache, no visual change. No sore throat or trouble swallowing. No stiff neck. No cough, shortness of breath, or chest pain. No nausea, vomiting, diarrhea, or dysuria. She has no rash anywhere but around her 5th finger on the left. No problems with her feet, and no joint problems ever. PHYSICAL EXAMINATION: Reveals an afebrile woman temperature 36.6, pulse 61 respiratory rate 18, blood pressure 107/69, saturating 100% on room air. Overall, no acute distress. Examination of the head is unremarkable. Eyes without conjunctivitis. Extraocular movements intact. Oral cavity benign. No thrush or hairy leukoplakia. Neck supple. Lungs clear posteriorly. Cardiac tones regular rate and rhythm, without murmur. The abdomen is soft and nontender, without organomegaly. The right upper extremity is completely benign. The left 5th finger is diffusely erythematous and actually insensate. The distal fingertip is a bit dusky. The erythema extends all the way around the left 5th finger and up onto the adjacent area of the palm. There is minimal purulence, but there is a dressing stuck in what appears to be an open wound I did not remove as the patient reported that would be very painful. Lower extremities are without cyanosis, clubbing, or edema. There is no evidence of synovitis. The patient is neurologically intact everywhere except her left 5th finger, which is insensate. LABORATORIES: Include a white count of 9200 with a mildly increased platelet count 443. Creatinine 0.41. LFTs are normal. Urine test negative. Blood cultures pending and MRSA screen pending. Going back to the last admission, though, a couple of weeks ago, we grew MSSA from the finger which was sensitive to all standard staph drugs and a beta lactamase producing prevotella. IMPRESSION: This unfortunate patient has allowed her left 5th finger infection to progress to the point that it is no longer viable and will require resection. She undoubtedly has osteomyelitis and, given that this infection extends up onto the palm, I think were going to be looking at a prolonged course of antibiotics. This whole situation is made more difficult by the fact the patient signed out in 2013 with a right hand infection and signed out two weeks ago with this infection which then dramatically worsened and now has cost her at least her 5th finger on the left. Whether we will be able to manage this patient with IV antibiotics here in the hospital or whether we will have to use more creative options to treat her as an outpatient remains unclear at this time. In speaking to the patient I really have no confidence that she would take oral antibiotics as she has declined to do that in 2013 and earlier this year. RECOMMENDATIONS: 1. Given that she is tolerant of cephalosporins, I would much prefer to use cefazolin in this circumstance than vancomycin, so we will start the patient on maximal dose IV cefazolin while we stop her vancomycin. 2. The patient is currently receiving Flagyl, which I think is reasonable, but it is at a dose of every 6 hours IV which is unnecessary given its long half-life. It can actually be given orally without difficulty, but I think I will give it to her IV because over the next day or two she is going to be in and out of the OR and it might be simpler to give it IV, but will change the dose to 1 g q.12, which should be more than adequate. 3. Will need to check HIV and hepatitis C obviously in this young IV drug using woman and she agrees to this testing. 4. I will closely follow this patient with you. The choices for sending the patient home following whatever surgery and rehab are required here in the hospital will be difficult because of her ongoing IV drug use which apparently persisted right up to the day of this admission combined with her recent history of signing out AMA frequently and noncompliance with oral medications.
--- NOTE | 2016-11-13 13:00 | NUR ---
Withdrawal Symptoms Patient stated she felt "lousy", and anxious with arms twitching and legs felt restless. Diaphoretic. Last drug use was approximately 1-2 days ago. Administered 1 tab of clonidine for withdrawal symptoms. Patient sleeping in room, waiting until surgery time.
[2016-11-13] MEDS: CeFAZolin Inj 2 GM in IV Premix 1 EACH IV SCH ×2 (13:08→20:22)
--- NOTE | 2016-11-13 14:55 | NUR ---
Transfer to OR Patient's IV was saline locked, SCD's in place. Removed telemetry box. Patient has opportunity to void. Stood and transferred to [facility] independently.
--- NOTE | 2016-11-13 16:29 | PCM.HPANE ---
Patient Data Date of Service: Nov 13, 2016 (1200) Surgeon Admitting Provider:Juan Pack MD Attending Provider:Juan Pack MD Primary Care Physician:Nopcp Other Provider: Reason for Visit Left Finger Infection LEFT FINGER INFECTION Ht/WT & BMI Height (Feet): 5 Height (Inches): 1.50 Weight (Kilograms): 75.000 Body Mass Index 30.82 Allergies Coded Allergies: Penicillins (Verified Allergy, Severe, hives, 02/04/14) Kiwi (Verified Allergy, Unknown, 11/13/16) Past Anesthesia History Anesthesia History: Denies:: Anesthesia Reactions Diabetes History Hx Diabetes?: No MRSA MRSA: Yes Medications No Active Prescriptions or Reported Meds History History of ENT Problems?: No HEENT History: Denies:: Cataracts Dysphagia Sinus Problem Hx of Heart Problems?: No Cardiovascular History: Denies:: Cardiac Surgery Chest Pain Congestive Heart Failure Edema Heart Murmur Hypertension Irregular Heartbeat Pacemaker Thrombophlebitis Hx of Respiratory Problem?: No Respiratory History: Positive for:: Pneumonia (when 14 years old) Denies:: Asthma COPD Chest Surgery Dyspnea Emphysema Hemoptysis Tuberculosis Hx Neurologic Problems?: No Neurological History: Denies:: Alzheimer's Disease CVA Dementia Dizziness Headaches Parkinson's Disease Seizures Hx of GI Problems?: No Gastrointestinal History: Denies:: Diverticulitis Gastroesphageal Reflux Gastrointestinal Bleeding Heartburn Hepatitis Hiatal Hernia Rectal Bleeding Hx of Problems?: No Genitourinary History: Denies:: HX of Hemodialysis Kidney Stones Urinary Tract Infection HX of Peritoneal Dialysis: No Female Hx: Denies:: Currently Endometriosis Pelvic Inflammatory Problems with Breasts? Hx Musculoskeletal Problems?: No Musculoskeletal History: Positive for:: Back Injury (low back pain) Denies:: Joint Replacement Musculoskeletal Trauma Hx of Psycho/Social Problems?: No Psycho Social History: Positive for:: Hx Depression Denies:: Anxiety Bipolar Disorder Suicide Attempt Hx Surgeries?: Yes (tonsillectomy) Hx Any Other Health Problems?: No Other History: Positive for:: Hospitalization (a couple weeks ago for finger infection & one year ago for other hand) Denies:: Cancer Endocrine Disease Thyroid Disease History Blood Transfusions: Positive for:: Accept Blood Products? Denies:: Blood Transfusions Hx Diabetes: No Hx Alcohol Use: NoHx Substance Use: Yes (Has both smoked and injected heroin; occasional smoking marijuana) Smoking Status: Current Every Day Smoker (1/2 PPD) Have You Smoked inLast 12 mo: YesApprox How Many Cigarettes/day: 10-20 a day Stop/Bang Treated for Sleep Apnea?: No Do You Have a CPAP Machine?: No S-Snoring: Do You Snore Loudly: No T-Tired: feel tired, fatigued: Yes O-Obsered: Observed not breath: No P-Blood Pressure: treated: No B- Body Mass Index > 35 kg/m2: No A- Age over 50: No N- Neck Large Circumference: No G- Gender Male: No DESHAWN Total Score: 1 Risk Assessment Category Category 1A: Patient has history of documented sleep apnea, and HAS NOT received any narcotic, sedative or anesthesia administration during this stay. Category 1B: Patient has history of documented sleep apnea, and HAS received any narcotic , sedative or anesthesia administration during this stay Category 2: Patient has SUSPECTED Obstructive Sleep Apnea, and HAS received any narcotic , sedative or anesthesia administration during this stay. Category 3: Patient has SUSPECTED Obstructive Sleep Apnea and HAS NOT received narcotic, sedative or anesthesia administration during this stay. Category 4: Outpatient in Procedural Areas with known sleep apnea or who screen positive for High Risk via the STOP/BANG questionnaire. Exam Exam Vital Signs Vital Signs Date Time Temp Pulse Resp B/P Pulse Ox O2 Delivery O2 Flow Rate FiO2 11/13/16 11:32 36.9 93 18 119/63 98 Room Air 11/13/16 09:14 61 General Appearance: Alert, Oriented X3, Cooperative, No Acute Distress HEENT/AIRWAY: MP 2 Lungs: Clear to Auscultation Heart: Exam Unremarkable Meds/Labs/Diagnostics Admission Meds Current Medications Sodium Chloride 1,000 ml @ 0 mls/hr Q0M ONCE IV Last administered on 22:40; Start 11/12/16 at 21:41; Stop 11/12/16 at 21:47; Status DC Vancomycin HCl/ Dextrose/Water (Vancocin Inj/ D5W) 500 ml @ 333.333 mls/hr ONCE ONCE IV Last administered on 11/12/16 22:41; Start 11/12/16 at 22:30; Stop 11/13/16 at 11:09; Status DC Lorazepam 2 mg 2 mg ONCE ONCE IM Last administered on 11/12/16 00:40; Start 11/12/16 at 23:20; Stop 11/12/16 at 23:21; Status DC Lactated Ringer's 1,000 ml @ 100 mls/hr Q10H IV Last administered on 02:33; Start 11/13/16 at 01:57 Metronidazole/ Sodium Chloride 500 mg/Premix 100 ml @ 200 mls/hr Q6 IV Last administered on 11/13/16 09:02; Start 11/13/16 at 08:30; Stop 11/13/16 at 11:09 ; Status DC Vancomycin HCl/ Dextrose 1000 mg/ Premix 200 ml @ 133.333 mls/hr Q8H IV Last administered on 11/13/16 06:32; Start 11/13/16 at 06:30; Stop 11/13/16 at 11:09 ; Status DC Cefazolin Sodium/ Dextrose/Premix (Ancef Inj/IV Premix) 50 ml @ 100 mls/hr Q8H IV Last administered on 11/13/16 13:08; Start 11/13/16 at 11:30 Labs Test 11/12/16 23:12 11/13/16 06:14 11/13/16 12:00 White Blood Count 9.2th/mm3 (3.8-10.1) Red Blood Count 4.80mil/mm3 (3.90-5.20) Hemoglobin 13.8g/dL (12.0-15.6) Hematocrit 40.0% (35.0-46.0) Mean Corpuscular Volume 83.3fL (81-100) Mean Corpuscular Hemoglobin 28.8pg (27.0-35.0) Mean Corpuscular Hemoglobin Concent 34.5% (32.0-37.0) Red Cell Distribution Width 13.1% (12.3-15.4) Platelet Count 443bil/L (150-400) Neutrophils (%) (Auto) 45.3% (40-74) Lymphocytes (%) (Auto) 45.3% (14-46) Monocytes (%) (Auto) 7.2% (4-12) Eosinophils (%) (Auto) 1.7% (0-5) Basophils (%) (Auto) 0.2% (0-3) Sodium Level 139mEq/L (134-144) Potassium Level 4.5mEq/L (3.5-5.2) Chloride Level 100mEq/L (97-108) Carbon Dioxide Level 28mmol/L (18-29) Blood Urea Nitrogen 12mg/dL (6-20) Creatinine 0.41mg/dL (0.57-1.00) Estimat Glomerular Filtration Rate 267mL/min (>59) Glucose Level 92mg/dL (60-99) Lactic Acid Level 1.8mmol/L (0.4-2.0) Calcium Level 9.3mg/dL (8.5-10.1) Magnesium Level 2.1mg/dL (1.6-2.6) Total Bilirubin 1.0mg/dL (0.0-1.2) Aspartate Amino Transf (AST/SGOT) 24U/L (0-50) Alanine Aminotransferase (ALT/SGPT) 24U/L (0-32) Alkaline Phosphatase 67U/L (25-150) Total Protein 7.8g/dL (6.4-8.4) Albumin 3.8g/dL (3.4-5.0) Urine HCG, Qualitative Negative (Negative) Hold Urine Received (Received) Plan Impression Patient chart reviewed, patient interviewed and anesthestic plan with risks, benefits, and alternatives discussed, and informed consent obtained. ASA Physical Status: ASA3 Severe Disease Anesthetic Plan: GA Bene/Risks/Altern/Consents: Yes HP Complete Prior to Induction: Yes Todd Read MD Nov 13, 2016 16:29
[2016-11-13] MEDS ORDERED: Bupivacaine-MPF 0.5% 30 mL Inj INFILTRATE ONE (16:30)
[2016-11-13] MEDS ORDERED: Lactated Ringer's 500 ML IV PRN (16:33)
[2016-11-13] MEDS ORDERED: Lactated Ringer's 1,000 ML IV SCH (16:33)
[2016-11-13] MEDS ORDERED: MetoCLOpramide 5 mg/mL 2 mL Inj IVPUSH PRN (16:35)
[2016-11-13] MEDS ORDERED: Dexamethasone 4 mg/mL Inj IVPUSH PRN (16:35)
[2016-11-13] MEDS ORDERED: EPHEDrine Sulfate 50 mg/mL Inj IVPUSH PRN (16:35)
[2016-11-13] MEDS ORDERED: Phenylephrine 10,000 mCg/mL Inj IVPUSH PRN (16:35)
[2016-11-13] MEDS ORDERED: Sodium Biphos-Phos 133 mL Enema RECTAL PRN (17:25)
[2016-11-13] MEDS ORDERED: HYDROcodone-APAP 7.5-325 mg Tablet PO PRN (17:25)
[2016-11-13] MEDS ORDERED: HYDROcodone-APAP 5-325 mg Tablet PO PRN (17:25)
[2016-11-13] MEDS ORDERED: Vancomycin Dose per Pharmacist XX ONE (17:25)
[2016-11-13] MEDS ORDERED: Magnesium Hydroxide 10 mL Oral Concentration PO PRN (17:25)
--- NOTE | 2016-11-13 17:47 | PCM.ORTHOB ---
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 Assistants: Filipe Dave PA-C Findings Left small finger and hand dorsal-ulnar wound extending from the PIP joint proximal to the dorsal ulnar soft tissues overlying the fifth metacarpal neck. Exposed flexor and extensor tendons with skeletonized small finger proximal phalanx. Devitalized and darkened distal small finger. Viable soft tissues at the edge of surgical margins following small finger amputation with fifth and ray resection to the level of the metaphyseal diaphyseal junction of the proximal metacarpal -5. No purulent material noted in the resultant proximal surgical margins. Wound edges and skin closure of the amputation stump accomplished without undue tension or gapping. Wound edges and remaining digits pinked up satisfactorily following tourniquet release. Grafts, Implants: None Complications There were no periprocedural complications identified. Condition Stable Anesthetic Administered: GA Drains: None Catheters: None Output, Estimated Blood Loss: 20 Blood Admin during surgery: No Surgical Cast or Splint: None Additional Information Tourniquet time 42 minutes Surgical Specimen Removed: Yes (wound tissue for culture and sensitivity.) Surgical Specimen sent to Path: Yes Surgical Specimen description: Left small finger and fifth metacarpal Post Operative Plan The patient will return to the hospitalist service for administration of IV antibiotics while intraoperative cultures are pending identification and sensitivities. The patient should avoid strenuous left hand activities until her wound is stable. Conversion to oral antibiotics therapy will be dependent on culture sensitivities and clinical course over the next 48-72 hours. The surgical wound will be evaluated postop day #2. Dry dressing changes can resume after that point and should continue until sutures have been removed. Sutures will remain in place for 3 weeks. Fran Esposito MD Nov 13, 2016 17:47
[2016-11-13] MEDS: HYDROmorphone 1 mg/mL Inj IVPUSH PRN ×2 (17:49→17:57)
--- NOTE | 2016-11-13 17:50 | PCM.ANEP1 ---
Post Anesthesia Phase 1 PACU Phase 1 Assessment Date of Service: Nov 13, 2016 Vital Signs Vital Signs Date Time Temp Pulse Resp B/P Pulse Ox O2 Delivery O2 Flow Rate FiO2 11/13/16 17:45 89 12 122/80 98 Room Air 11/13/16 17:40 82 16 121/77 99 Room Air 11/13/16 17:35 79 14 119/71 97 Room Air 11/13/16 17:30 84 12 115/68 96 Room Air 11/13/16 17:25 36.3 88 13 111/68 94 Room Air 11/13/16 11:32 36.9 93 18 119/63 98 Room Air Anesthetic Administered: GA Level of Alertness: Sleeping, hard to arouse Pain: Yes Oxygen Delivery: Room Air Lungs: Clear to Auscultation Todd Read MD Nov 13, 2016 17:50
[2016-11-13] MEDS: fentaNYL-PF 50 mCg/mL 2 mL Inj IVPUSH PRN ×3 (17:51→18:08)
[2016-11-13] MEDS ORDERED: Lactated Ringer's 1,000 ML IV ONE (17:58)
--- NOTE | 2016-11-13 18:03 | PCM.ORTHOP ---
Orthopedic Operative Report Date of Service: Nov 13, 2016 Pre Operative Diagnosis Left small finger and hand infection Post Operative Diagnosis Same Procedure Left small finger amputation and hand trimmer ray resection Surgeon Surgeon: Fran Esposito M.D. Assistants: Filipe Dave PA-C Indication for Procedure The patient is a 26-year-old [id number] IV DA who initially developed a left small finger abscess 2 weeks prior to admission which she underwent an initial I and D procedure for 10/30/2016. The patient left the hospital on the day of surgery AMA and without arranging for antibiotic therapy or wound care. The patient really presented to [facility] 11/13/2016 with increasing left hand pain and an infected, large left small finger and hand wound with exposed small finger tendon and bone and a devitalized digit. This noncompliant patient presents to the OR today for left small finger amputation and partial fifth ray resection as salvage treatment for her ongoing left small finger infection and nonhealing hand wound. The skilled assistance of a physician's per diem physical therapist assistant, Filipe Dave PA-C, was necessary for the successful completion of this case. The PA was essential for the proper positioning, manipulation of instruments, proper exposure, manipulation of tissues and wound closure. Findings Left small finger and hand dorsal-ulnar wound extending from the PIP joint proximal to the dorsal ulnar soft tissues overlying the fifth metacarpal neck. Exposed flexor and extensor tendons with skeletonized small finger proximal phalanx. Devitalized and darkened distal small finger. Viable soft tissues at the edge of surgical margins following small finger amputation with fifth and ray resection to the level of the metaphyseal diaphyseal junction of the proximal metacarpal -5. No purulent material noted in the resultant proximal surgical margins. Wound edges and skin closure of the amputation stump accomplished without undue tension or gapping. Wound edges and remaining digits pinked up satisfactorily following tourniquet release. Details of Procedure The patient was brought to the OR and given a general anesthetic. She was placed in a supine position and the left upper extremities abducted onto a hand table. Left upper extremity received a trauma scrub. Tourniquet was placed just proximal to the left elbow and the left upper extremity was prepped and draped in usual sterile fashion. The tourniquet was inflated to 200 mmHg. We proceeded with our left small finger amputation and partial fifth ray resection. A circumferential incision was taken from viable skin directly to bone about the base of the left small finger proximal to the MCP flexor crease and dorsally through the fourth interdigital web space and proximally to the level of the fifth metacarpal neck where viable and healthy dorsal soft tissue existed. The 5 cm incision was extended proximally along the dorsum of the fifth ray to the level of the fifth metacarpal metaphyseal diaphyseal function. The flexor and extensor tendons to the small finger were divided in the process and the distal portion of the fifth metacarpal was cleared of soft tissue in a subperiosteal fashion. A sagittal saw was then used to divide the fifth metacarpal at the metaphyseal diaphyseal junction with a slightly beveled cut. We then removed the distal portion of the fifth metacarpal along with the left small finger which was passed off as a surgical specimen. Tissue from the left small finger wound was also sent to microbiology for culture and sensitivity. The remaining soft tissues appeared viable although slightly edematous. There was no purulence. We thoroughly irrigated the wound with lactated Ringer's and closed in a single layer using interrupted 3-0 Prolene vertical mattress sutures and simple skin sutures. The resultant wound closure was accomplished without undue tension or gapping. 10 mL of 0.5% Marcaine was instilled into the wound. The tourniquet was deflated and hemostasis was confirmed with the wound edges at the amputation stump and remaining digits pinking up satisfactorily. The wound was dressed with Xeroform and fluff gauze dressings. The patient was taken back to PACU in stable and satisfactory condition. There were no complications. He should tolerated the procedure well. Grafts, Implants: None Complications There were no periprocedural complications identified. Condition Stable Anesthetic Administered: GA Drains: None Catheters: None Output, Estimated Blood Loss: 20 Blood Admin during surgery: No Surgical Cast or Splint: None Addtional Information Tourniquet time 42 minutes Surgical Specimen Removed: Yes (wound tissue for culture and sensitivity.) Specimen sent to Pathology: Yes Surgical Specimen description: Left small finger and fifth metacarpal Post Operative Plan The patient will return to the hospitalist service for administration of IV antibiotics while intraoperative cultures are pending identification and sensitivities. The patient should avoid strenuous left hand activities until her wound is stable. Conversion to oral antibiotics therapy will be dependent on culture sensitivities and clinical course over the next 48-72 hours. The surgical wound will be evaluated postop day #2. Dry dressing changes can resume after that point and should continue until sutures have been removed. Sutures will remain in place for 3 weeks. copies to: Fran Esposito MD, Michael G.E MD Nov 13, 2016 18:03
--- NOTE | 2016-11-13 18:39 | NUR ---
TRANSFER FROM PACU Patient arrived back to room 1011 on OR [facility]. Was able to self scoot to hospital bed. L hand is wrapped with kerlix and mar wrap. Good capillary refill to fingers on Left hand. Able to wiggle fingers but reluctant to move them due to pain. On RA, IV fluids reconnected. SCD's in place. Advised patient of non-weight bearing status and restrictions to L arm. Visitor in room, advised not allowed to stay overnight. Rates pain 5/10, throbbing. Tolerating clear liquids, ordered dinner. Continue to monitor with hourly rounding.
--- NOTE | 2016-11-13 19:56 | DRSVH ---
PROCEDURE: X-RAY LEFT HAND, MINIMUM THREE VIEWS ([id number]) INDICATIONS: post amputation TECHNIQUE: 3 views of the hand(s) acquired. COMPARISON: [facility], CR, XR HAND 3VW LT, 10/29/2016, 16:06. FINDINGS: Bones: Status post amputation of the little finger at the level of the proximal fifth metacarpal. No fractures or dislocations. Carpal bones are normally aligned. No suspicious bony lesions. Soft tissues: No suspicious soft tissue calcifications. IMPRESSION: Postoperative changes as above, related to the little finger amputation. Dictated by: Carlton Lomeli M.D. on 11/13/2016 at 19:53 Approved by: Carlton Lomeli M.D. on 11/13/2016 at 19:54
[2016-11-13] MEDS ORDERED: metroNIDAZOLE Inj 1,000 MG in IV Premix 1 EACH IV SCH (20:30)
[2016-11-13] MEDS: oxyCODONE-Acetamin 5-325 mg Tablet PO PRN (21:07)
[2016-11-13] MEDS: Senna-Docusate 8.6-50 mg Tablet PO SCH (21:07)
[2016-11-13] MEDS ORDERED: Vancomycin Serum Trough XX ONE (22:00)
[2016-11-13] MEDS: Sodium Chloride LOK Flush 10 mL Syringe IV SCH (23:53)
[2016-11-14] VITALS (8 sets, daily range): BP systolic 90–120; BP diastolic 57–76; PULSE 48–107; RESP 16–20; O2SAT 96–100
[2016-11-14] MEDS: oxyCODONE-Acetamin 5-325 mg Tablet PO PRN ×3 (00:59→14:33)
--- NOTE | 2016-11-14 02:14 | NUR ---
IV/Pain While hanging Flagyl ABX, patient's IV to left upper arm noted to be occluding and wouldn't flush. Had charge master specialist assess IV site, and couldn't get it to flush either. Patient is an extremely difficult IV start and previous IV had to be placed via ultrasound. manager security stated she could try and start IV in patient's foot if MD is agreeable. Paged Dr. Pack @ [phone] IV in foot, but patient refused any attempt at it r/t previous failed attempts in ER. Patient aware that IV therapy won't be in until morning and she'd miss 2 IV ABX doses. Patient continues to request to wait for IV therapy. FYI page sent to Dr. Pack. Receiving Percocet 5/325 two tabs PO for pain management. Noted to be resting with eyes closed throughout all of shift thus far.
[2016-11-14] MEDS: CeFAZolin Inj 2 GM in IV Premix 1 EACH IV SCH (02:32)
[2016-11-14] MEDS: cloNIDine 0.1 mg Tablet PO PRN (04:30)
[2016-11-14 06:05] LABS: BASOPHILS % (AUTO) 0.1 % (0-3); EOSINOPHILS % (AUTO) 0.1 % (0-5); MONOCYTES % (AUTO) 6.2 % (4-12); Mean Corpuscular Hemoglobin 29.1 pg (27.0-35.0); Mean Corpuscular Volume 83.6 fL (81-100); NEUTROPHILS % (AUTO) 69.5 % (40-74); Platelet Count 434 bil/L (150-400)
--- NOTE | 2016-11-14 07:45 | PCM.ANEP2 ---
Post Anesthesia Evaluation ASA/CMS Post Anesthesia VS in Patient's Normal Range?: Yes Resp Stable; Airway Patent?: Yes CV Function & Hydration Stable: Yes Mental Status Recovered?: Yes Pain control Satisfactory?: Yes N/V Control Satisfactory?: Yes Todd Read MD Nov 14, 2016 07:45
[2016-11-14] MEDS: Sodium Chloride LOK Flush 10 mL Syringe IV SCH ×2 (08:30→16:30)
[2016-11-14] MEDS: Senna-Docusate 8.6-50 mg Tablet PO SCH (08:55)
[2016-11-14] MEDS ORDERED: LORazepam 1 mg Tablet PO PRN (10:10)
--- NOTE | 2016-11-14 11:45 | PCM.PNORTH ---
Subjective Date of Service: Nov 14, 2016 Visit Information: Reason for Visit Left Finger Infection Surgery/Surgery Date Post-Op Day # 1 Date of Admission: Nov 13, 2016 at 01:34 Hospital Day # Subjective Patient states she is having pain. She states she is resting and that we are interrupting her. Patient covered her face with the blanket during our conversation as the lights were too bright. Patient's IV has infiltrated but she turned away IV therapy as she was "resting." They will return later today to put her IV in so patient can receive her antibiotics. Postop General: No Shortness of Breath, No Chest Pain Pain Management: PO, IV Push Objective Exam Objective Patient laying in bed, curled up under her blanket. Patient's face and body were covered during exam. Vital Signs and I/O Vital Sign - Last Date Time Temp Pulse Resp B/P Pulse Ox O2 Delivery O2 Flow Rate FiO2 11/14/16 08:38 36.2 107 120/76 97 Room Air 11/14/16 04:27 16 Intake and Output 11/13/16 11/13/16 11/14/16 Cumulative From/Thru 15:00 23:00 07:00 11/12/16 20:27 - 11/14/16 06:16 Intake Total 1661 ml 600 ml 3313 ml Output Total 20 ml 800 ml 1470 ml Balance 1641 ml -200 ml 1843 ml Intake Oral 600 ml 600 ml IV Total 1661 ml 2713 ml Output Urine Total 800 ml 1450 ml Estimated Blood Loss 20 ml 20 ml # Voids 1 # Bowel Movements 0 0 Lab & Micro Results Laboratory Tests Test 11/13/16 12:00 11/14/16 05:34 Hepatitis C Antibody >11.0s/co ratio HIV (1&2) Ag and Ab, 4th Generation Non reactive (Non Reactive) White Blood Count 9.6th/mm3 (3.8-10.1) Red Blood Count 4.50mil/mm3 (3.90-5.20) Hemoglobin 13.1g/dL (12.0-15.6) Hematocrit 37.6% (35.0-46.0) Mean Corpuscular Volume 83.6fL (81-100) Mean Corpuscular Hemoglobin 29.1pg (27.0-35.0) Mean Corpuscular Hemoglobin Concent 34.8% (32.0-37.0) Red Cell Distribution Width 12.9% (12.3-15.4) Platelet Count 434bil/L (150-400) Neutrophils (%) (Auto) 69.5% (40-74) Lymphocytes (%) (Auto) 23.7% (14-46) Monocytes (%) (Auto) 6.2% (4-12) Eosinophils (%) (Auto) 0.1% (0-5) Basophils (%) (Auto) 0.1% (0-3) Microbiology 11/12/16 Blood Culture - Preliminary, Resulted NO GROWTH AFTER 24 HOURS 11/13/16 MRSA Screen - Final, Complete 11/13/16 Gram Stain - Final, Resulted 11/13/16 Culture & Sensitivity, Resulted Pending 11/13/16 Anaerobic Culture, Resulted Pending Result Diagram: 11/14/16 0534 11/12/16 2312 General Appearance: Alert, Oriented X3, No Acute Distress Extremities: Distal Pulses Palpable, No Compartment Syndrom Noted Postop Sensory Motor: Distal Motor Intact, Movement in Fingers, Distal Sensation Intact, NVI Distally (Brisk capillary refill in all remaining digits) SURGICAL WOUND : Wound Location/Description Perioperative dressing clean, dry and intact. Incision General Appearance: No Direct Observation Dressing & Drainage Status: Intact Catheters: None Assessment & Plan Impression Postop day #1 right small finger amputation Problems: Plan PT/OT for ROM to elbow, wrist, hand and remaining fingers. Encourage ambulation to reduce DVT risks. Avoid strenuous activity to the hand. A new IV needs to be established for antibiotic therapy. Weightbearing: Patient should avoid strenuous activity with the right hand until healing is noted. Wound care: Dressings will be changed tomorrow by BRENDA. Per Dr. Esposito: If incision does not appear to be healing adequately on POD#2 when dressings are changed, may consider a wound check at 2 weeks with Filipe Dave without suture removal. Analgesia: Encourage oral pain management. Discharge plan: Discharge when stable per hospitalist service. Awaiting cultures to determine appropriate antibiotic therapies. Follow-up plan: In [address] [facility] with Filipe Dave for suture removal. Sutures should not be removed prior to 3 weeks. Appreciate being asked to consult on this patient by the hospitalist service. VTE Prophylaxis: SCDs Resuscitation Status: CPR: Attempt Resuscitation Darlene Smith PA-C Nov 14, 2016 11:45
[2016-11-14] MEDS ORDERED: Dalbavancin Inj 1,500 MG in Dextrose 5% 500 ML IV ONE (13:30)
--- NOTE | 2016-11-14 13:35 | PROG NOTE ---
[address] [address] PROGRESS NOTE PATIENT: LESLY SIMPSON : 1990 MR#: [id number] ADMIT: 11/13/2016 JOB ID: [id number] DATE: 11/14/2016 INFECTIOUS DISEASE FOLLOWUP NOTE: REASON FOR FOLLOWUP: Necrotic left 5th finger with polymicrobial infection. INTERVAL HISTORY: Yesterday the patient underwent amputation of the left 5th finger and some of the associated ray. This was done in the operating room by Dr. Esposito. It was his opinion the patient could be transitioned to oral antibiotics fairly soon after this definitive procedure. Today there is great difficulty in trying to get an IV in the patient to continue her IV antibiotics and I was asked to intervene. The patient tells me she has no fevers, chills, or sweats. She has no pulmonary or GI symptoms. She has minimal pain in her hand as long as she gets enough pain meds. She is already asking to be discharged and recall this is a patient with a very bad history in terms of leaving AMA and failing to take oral antibiotics when she is out of the hospital. PHYSICAL EXAMINATION: Reveals an afebrile woman in no acute distress. Temp 36.2, pulse varies between 50 and 100, blood pressure 120/76, saturating well on room air. Oral cavity negative. Lungs clear. Abdomen soft and nontender. Her left hand is wrapped in an extensive postop dressing. LABORATORIES: Include a white count of 9600, platelet count 434,000. Creatinine 0.41. Urinalysis negative from the test. Hep C turns out to be positive. A MRSA screen from the nares is negative. Blood cultures negative, but the hand cultures obtained pre amputation are growing a Staph aureus which is an MSSA and prevotella which is an anaerobe. IMAGING: The postop x-ray shows that the 5th finger on the left has been amputated but there are no notable abnormalities in the metacarpal bones. IMPRESSION: This is a difficult case of a young woman with a longstanding history of IV heroin and amphetamine use who has had a series of problems with her left finger, none of which were adequately cared for in terms of her following up and taking antibiotics. Finally it has reached a point where the left 5th finger had to be amputated. Because there was some erythema up onto the palm pre amputation, I think she should continue to receive antibiotics either IV or orally. This will likely prove to be almost impossible given her history of noncompliance. One approach here would be give her a dose of dalbavancin, which will provide two weeks of coverage for the MSSA and the patient will not require any more IV or oral therapy. To this I would add high-dose oral Augmentin to be taken for the next at least two weeks. RECOMMENDATIONS: 1. I will discontinue the Ancef she is currently receiving. Will also DC the IV Flagyl she has been receiving. 2. Dalbavancin 1.5 g x1 will be given. 3. In view of the patient's history of penicillin allergy we will be forced to continue with Flagyl. The dose of Flagyl will be 500 p.o. b.i.d., which I suspect will be adequate as the patient has now had the resection of the grossly diseased portion of her hand. I have written for 500 t.i.d. here in the hospital, but I would discharge her on 400 b.i.d. This should also continue for two weeks. 4. The patient requires a hepatitis C viral load and genotype. I recognize she is not an ideal candidate for therapy yet, but she will require treatment at some point in the future, and it will be helpful to see whether or not she still has a measurable viral load or if she has cured herself, and also what genotype this is. In summary, the patient will receive dalbavancin x1 dose today. She is then to be transitioned to Flagyl 500 mg three times a day while she is here in the hospital and 500 mg twice a day when she goes home.
--- NOTE | 2016-11-14 16:35 | NUR ---
Social Work Attempted Discharge Plan and CD assessment: SW met with patient at bedside to discuss discharge plan. Patient refused to speak with SW at bedside at this time as she states that she has not been able to sleep due to frequent interruptions. SW to report at a later time. SW to follow. Kathleen ONTIVEROS
--- NOTE | 2016-11-14 17:03 | PCM.PNMED ---
Subjective Date of Service Nov 14, 2016 Subjective complains of withdrawal symptoms. no diarrhea. no fever/chills Exam Vital Signs Vital Sign - Last Date Time Temp Pulse Resp B/P Pulse Ox O2 Delivery O2 Flow Rate FiO2 11/14/16 15:03 36.1 86 16 90/67 100 Nasal Cannula 2.00 Intake and Output 11/13/16 11/13/16 11/14/16 Cumulative From/Thru 15:00 23:00 07:00 11/12/16 20:27 - 11/14/16 06:16 Intake Total 1661 ml 600 ml 3313 ml Output Total 20 ml 800 ml 1470 ml Balance 1641 ml -200 ml 1843 ml Intake Oral 600 ml 600 ml IV Total 1661 ml 2713 ml Output Urine Total 800 ml 1450 ml Estimated Blood Loss 20 ml 20 ml # Voids 1 # Bowel Movements 0 0 General: Alert, Cooperative, No Acute Distress Eyes: Scleral Anicteric Mouth: Mucous Membr Moist/[place] Neck: Supple Chest & Lungs: Chest Wall Normal, Clear to auscultation & percussion Cardiovascular: Regular Rate/Rhythm Abdomen: Non-tender, Non-distended, Normoactive bowel tones, Soft Extremities: No cyanosis/clubbing/edma bilat, Other (left hand in dressing) Neurological: Grossly Neurologically Intact, Normal Speech IVs and Medications Medications Reviewed: Medications were reviewed in detail Lab and Diagnostics Result Diagram: 11/14/16 0534 11/12/16 2312 Additional Diagnostics Wound management at 00:30 by ED Physician: Packing was removed, there was considerable breakdown of further tissue with bone exposed in some areas with sloughing of the skin. Assessment & Plan 26 year old female with a history of heroin and tobacco use. She presented to [facility] on 11/12/16 for a wound check and dressing change on her left hand. When the dressing was removed it was discovered that the wound had worsened with the ED physician noting skin sloughing, foul odor, and possible exposed bone. 1. Left fifth digit infection, acute present on admission. - post left small finger amputation and hand flesher ray resection on 11/13/16 - appreciate ortho and ID consults. will f/u w/ recs - Dalbavancin 1.5 g x1 on 11/14/16. - continue with Flagyl. The dose of Flagyl will be 500 t.i.d. here in the hospital, but 400 b.i.d on discharge. This should continue for two weeks. 2. Heroin use, chronic. - Has used IV and inhaled. - Voices desire to go through detox at facility in [place]. - Dr. Marshall considering the use of suboxone in this patient. - c/w Clonidine and Ativan PRN. - f/u w/ social work 3. Tobacco use, chronic. - 1/2 PPD - Nicotine patch available PRN. 4. Positive Hep C - further f/u and possible treatment as outpatient Dispo: possible d/c in am GI Prophylaxis: Not indicated VTE Prophylaxis: SCDs VTE Mechanical Devices: Intermittant Pneumatic CD Resuscitation Status: CPR: Attempt Resuscitation Nahid Watson Nov 14, 2016 17:03
--- NOTE | 2016-11-14 19:42 | NUR ---
Reaction to abx. Dalvance hung and administered per order using D5 flush. 20 minutes into administration, pt. reported severe SOB, and appeared flushed and diaphoretic. Dalvance stopped, vitals assessed and oxygen administered. Vitals stable, with BP being a little low. pt. denies being lightheaded, but states that she was lightheaded before becoming SOB. Pt. reported relief of symptoms around 10 minutes after abx was stopped. Dr. Major notified. Planned to restart med at slower rate and monitor for adverse symptoms. Dalvance restarted after 30 minutes at 100cc/hr. Pt. tolerated this very well and had no complaints after med was restarted. Dr. Major notified of abx completion.
--- NOTE | 2016-11-14 20:50 | NUR ---
AMA Patient requesting to leave aware it was against medical advice, nightshift doctor paged and notified. IV taken out intact. Security unlocked possessions, patient left with all belongings. Paperwork signed.
--- NOTE | 2016-11-15 08:36 | PCM.DC.MED ---
Discharge Summary Date of Service Nov 15, 2016 Dates of Hospitalization Date of Hospital Admission Nov 13, 2016 at 01:34 Date of Discharge: Nov 14, 2016 Providers: Admitting Physician: Juan Pack MD Primary Care Physician: Nopcp Attending Physician: Juan Pack MD Diagnosis at Time of Discharge Diagnosis at Time of Discharge Left AMA 1. Left fifth digit infection, acute present on admission. - post left small finger amputation and edger hand ray resection on 11/13/16 2. Heroin use, chronic. 3. Tobacco use, chronic. 4. Positive Hep C Consultations 1. Ortho 2. ID Procedures Other Diagnostics Wound management at 00:30 by ED Physician: Packing was removed, there was considerable breakdown of further tissue with bone exposed in some areas with sloughing of the skin. Brief History 26 year old female with a history of heroin and tobacco use. She presented to [facility] on 11/12/16 for a wound check and dressing change on her left hand. When the dressing was removed it was discovered that the wound had worsened with the ED physician noting skin sloughing, foul odor, and possible exposed bone. Hospital Course 1. Left fifth digit infection, acute present on admission. - post left small finger amputation and edger hand ray resection on 11/13/16 - appreciate ortho and ID consults. will f/u w/ recs - Dalbavancin 1.5 g x1 on 11/14/16. - continue with Flagyl. The dose of Flagyl will be 500 t.i.d. here in the hospital, but 400 b.i.d on discharge. This should continue for two weeks. 2. Heroin use, chronic. - Has used IV and inhaled. - Voices desire to go through detox at facility in [place]. - Dr. Marshall considering the use of suboxone in this patient. - c/w Clonidine and Ativan PRN. - f/u w/ social work 3. Tobacco use, chronic. - 1/2 PPD - Nicotine patch available PRN. 4. Positive Hep C - further f/u and possible treatment as outpatient per nursing note patient decided to leave AMA on the night of 11/14/16 Exam Vital Signs (Last) Date Time Temp Pulse Resp B/P Pulse Ox O2 Delivery O2 Flow Rate FiO2 11/14/16 19:53 36.6 59 20 105/66 100 Room Air 11/14/16 15:03 2.00 Test 11/12/16 23:12 11/13/16 06:14 11/13/16 12:00 11/14/16 05:34 Sodium Level 139mEq/L (134-144) Potassium Level 4.5mEq/L (3.5-5.2) Chloride Level 100mEq/L (97-108) Carbon Dioxide Level 28mmol/L (18-29) Blood Urea Nitrogen 12mg/dL (6-20) Creatinine 0.41mg/dL (0.57-1.00) Estimat Glomerular Filtration Rate 267mL/min (>59) Glucose Level 92mg/dL (60-99) Lactic Acid Level 1.8mmol/L (0.4-2.0) Calcium Level 9.3mg/dL (8.5-10.1) Magnesium Level 2.1mg/dL (1.6-2.6) Total Bilirubin 1.0mg/dL (0.0-1.2) Aspartate Amino Transf (AST/SGOT) 24U/L (0-50) Alanine Aminotransferase (ALT/SGPT) 24U/L (0-32) Alkaline Phosphatase 67U/L (25-150) Total Protein 7.8g/dL (6.4-8.4) Albumin 3.8g/dL (3.4-5.0) Urine HCG, Qualitative Negative (Negative) Hold Urine Received (Received) Hepatitis C Antibody >11.0s/co ratio HIV (1&2) Ag and Ab, 4th Generation Non reactive (Non Reactive) White Blood Count 9.6th/mm3 (3.8-10.1) Red Blood Count 4.50mil/mm3 (3.90-5.20) Hemoglobin 13.1g/dL (12.0-15.6) Hematocrit 37.6% (35.0-46.0) Mean Corpuscular Volume 83.6fL (81-100) Mean Corpuscular Hemoglobin 29.1pg (27.0-35.0) Mean Corpuscular Hemoglobin Concent 34.8% (32.0-37.0) Red Cell Distribution Width 12.9% (12.3-15.4) Platelet Count 434bil/L (150-400) Neutrophils (%) (Auto) 69.5% (40-74) Lymphocytes (%) (Auto) 23.7% (14-46) Monocytes (%) (Auto) 6.2% (4-12) Eosinophils (%) (Auto) 0.1% (0-5) Basophils (%) (Auto) 0.1% (0-3) Discharge Medications No Active Prescriptions or Reported Meds Followup Plan Disposition: Nahid Gutierrez Nov 15, 2016 08:36
--- NOTE | 2016-11-18 14:06 | PATH ---
SURGICAL PATHOLOGY Attending Physician:See Additional MD CASE STATUS: Signed Out PATIENT NAME: LESLY SIMPSON PID: [id number] : 1990 DATE COLLECTED:11/13/2016 00:00 SPECIMEN: Extremity Amputation, Non-Traumatic CLINICAL HISTORY: LEFT SMALL FINGER HAND INFECTION 1). LEFT SMALL FINGER FINAL DIAGNOSIS: Amputated Left Small Finger: Severe acute and chronic inflammation involving skin and soft tissue extending to underlying bone with associated bone necrosis (osteomyelitis). Proximal bone resection margin appears viable. Proximal resection soft tissue margin severely inflamed. ICD10 M86.642 GROSS DESCRIPTION: The specimen is received in formalin, labeled with the patient's name, sublabeled as left small finger and consists of a resected finger (3.2 cm AP, 8.8 cm SI, 2.5 cm ML). The fingernail is present. A portion of skin and soft tissue (4.0 x 3.0 cm) on the medial side has been removed exposing red-brown soft friable tissue. The surrounding skin is dhillon yellow and black. The remaining skin is arguello-white smooth and shiny. No nodules, masses or lesions are identified. The bone cannot be sliced with a scalpel. The bone cut surface is pale arguello and unremarkable. Ink code: purple-anterior; yellow-posterior. Section code: (A) skin and soft tissue resection margins; (B) bone resection margin; (C, D) bone, serially sectioned, front office representative. Note: The bone sections have been decalcified. 11/14/16 ICD-9 CODES: CPT CODES: 1: 41424 Electronically Signed Out Nakul Arce MD [facility]ology [facility] [address], [place] [address] Technical component performed at [facility], [address] [place] [address] Ave[address], [place], [address]
== END 2016-11-14 20:57 | disposition left against medical advice (07) ==
LOC: SED 20:24 → OSC 11-13 01:34 → INTOOBSV 11-13 01:34 → OSC 11-13 01:52
PROVIDERS: ADMIT Hospitalist; ATTEND Hospitalist
PROC: 0X6 Anatomical Regions, Upper Extremities, Detachment (ICD-10-PCS; principal; 2016-11-13 15:30)
DX: L08.9 Local infection of the skin and subcutaneous tissue, unspecified (principal); F11.20 Opioid dependence, uncomplicated; B95.61 Methicillin susceptible Staphylococcus aureus infection as the cause of diseases classified elsewhere; B96.89 Other specified bacterial agents as the cause of diseases classified elsewhere; Z88.0 Allergy status to penicillin; Z91.19 Patient's noncompliance with other medical treatment and regimen; I96 Gangrene, not elsewhere classified; F17.210 Nicotine dependence, cigarettes, uncomplicated; F15.10 Other stimulant abuse, uncomplicated; B19.20 Unspecified viral hepatitis C without hepatic coma
CPT/HCPCS: 26910; 36415; 73130; 80053; 81025; 83605; 83735; 85025; 87040; 87070; 87075; 87081; 87205; 94640; 96365; 96375; 99285; G0378; G0433; G0472; J0690; J0875; J1100; J1170; J2060; J2250; J2405; J2765; J3010; J3370; J3490; J7030; J7060; J7120